=== PATIENT | male | born 1985 | race Caucasian/White ===

== ENCOUNTER 2017-09-05 11:15 | Observation (INO) | payer BC ==
[~2017-09-05] VITALS: Ht 182.9 cm; Wt 79.6 kg
[2017-09-05] VITALS (8 sets, daily range): BP systolic 106–129; BP diastolic 61–77; PULSE 61–91; TEMP 36.5–36.6; O2SAT 96–100; Ht 182.9 cm; Wt 79.6 kg
[2017-09-05] MEDS ORDERED: RIVA1TAB4 PO (11:43)
[2017-09-05] MEDS ORDERED: METO25TA56 PO (11:44)
[2017-09-05] MEDS ORDERED: DILT120C68 PO (11:45)
[2017-09-05] MEDS ORDERED: OMEG10007 PO (11:45)
[2017-09-05] MEDS ORDERED: MULT-506 PO (11:46)
--- NOTE | 2017-09-05 12:24 | NUR ---
CPL: PATIENT ARRIVED AND FOUND TO BE IN NSR/SINUS BRADYCARDIA, IV STARTED FOR EP PROCEDURE AND SPOKE WITH UNDERTAKER ASSISTANT AND ALSO DR TRIANA, WILL STILL PLAN FOR EP STUDIES AND SHE WILL NOTIFY DR IRIZARRY OF THIS
[2017-09-05] MEDS ORDERED: FENTANYL CITRATE INJ 50 MCG/1 ML 2 ML VIAL ONE ×4 (14:00→15:27)
[2017-09-05] MEDS ORDERED: MIDAZOLAM HCL 5 MG/ML 1 ML VIAL ONE ×3 (14:00→15:26)
[2017-09-05] MEDS ORDERED: HEPARIN SOD (PORCINE) 1000 UNIT/ML 10 ML VIAL ONE (14:36)
[2017-09-05] MEDS ORDERED: MIDAZOLAM HCL 1 MG/ML 2ML VIAL ONE (15:26)
--- NOTE | 2017-09-05 16:11 | History & Physical Bridge Note ---
H&P Re-Evaluation Bridge Note: I have examined the patient, reviewed the History & Physical and in the interval since the performance of the History & Physical I have noted the following changes of clinical significance: pt with p-atrial flutter for flutter ablation
--- NOTE | 2017-09-05 16:11 | Pre Sedation Assessment ---
Pre Sedation Assessment General Date of Sedation: Sep 05, 2017. Vital Signs Past 12 Hours Date Time Temp Pulse Resp B/P (MAP) Pulse Ox O2 Delivery O2 Flow Rate FiO2 09/05/17 11:46 36.6 61 12 129/77 (94) 100 Room Air Review Cardiovascular: regular rate, rhythm Lungs: lungs clear Pre-Sedation Airway Assessment Smoking Status: Former Smoker Hx of Sleep Apnea: No Short Thick Neck: No Oral Cavity: WNL Mallampati Classification: Class I ASA Classification: Class I Procedure Planning Contraindications for Sedation: None Current Medications Reviewed: Yes Notes The planned sedation has been discussed with the patient. Informed Consent was obtained. I have identified the patient, determined the appropriateness of sedation and have assessed the patient immediately prior to the procedure. All medicine(s) and interventions are by my order.
--- NOTE | 2017-09-05 16:13 | [facility] Post Operative Brief Note ---
Immediate Operative Summary Operative Date Sep 05, 2017. Pre-Operative Diagnosis p. atrial flutter Post-Operative Diagnosis same with bidirectional block along the cavo-tricuspid isthmus Procedure(s) Performed EPS, 3d mapping of cavo-tricuspid isthmus; radiofrequency ablation of CTI Surgeon flores barkley Contract Recruiter Surgeon(s) none Estimated Blood Loss <5cc Findings see official report Fluids (cc crystalloids) 600cc Specimens none Drains none Anesthesia 12mg versed and 300mcg fentatnyl Complication(s) None Disposition PCU
--- NOTE | 2017-09-05 16:14 | Post Sedation Assessment ---
Post Sedation Assessment General Date of Sedation Sep 05, 2017. Vital Signs: Vital Signs Past 12 Hours Date Time Temp Pulse Resp B/P (MAP) Pulse Ox O2 Delivery O2 Flow Rate FiO2 09/05/17 11:46 36.6 61 12 129/77 (94) 100 Room Air Post Procedure Recovery Score Activity: (2) Moves 4 extremities * Respiration: (2) Deep breath/cough Circulation: (2) +/-20% PreAnes Value Consciousness: (2) Fully Awake Oxygen Saturation: (2) > 92% On Room Air Post Anesthesia Score: 10 Discharge Sedation Level of Care: Fast Track Phase II Post Sedation Plan On clinical assessment, the patient appears to have tolerated the sedation without complications. Patient is recovering as anticipated. Patient will continue to be monitored by nursing and may be discharged when sedation discharge criteria are met per below protocol. Upon Completions of procedure and additional 15 minutes continue every 5 minute vital signs and the P.A.R. score; then discharge to a Phase I or Fast Track to Phase II per the following guidelines: * Discharge Patient to appropriate Phase II area if PAR is 8 or greater or return to pre- procedure baseline. The post - procedure orders will be as directed. * If PAR score is less than 8 or not return to pre-procedure baseline then patient will follow Phase I monitoring till PAR is reached for Phase II. The Phase I may be done in procedure room or may call to secure a Phase I area. * If naloxone or flumazenil are used for reversal, hold in Phase I for an additional 60 -120 minutes before discharge to Phase II. Please call the Sedation Physician to re-evaluate and complete post-note for discharge to Phase II area. Do NOT discharge from procedure sedation or Phase 1 until post- sedation evaluation note is complete by procedure /sedation MD Sedation Discharge Instructions to be given to the patient at discharge to home.
[2017-09-05] MEDS ORDERED: ACETAMINOPHEN 325 MG TAB PO PRN (16:15)
--- NOTE | 2017-09-05 16:17 | Discharge Instructions ---
Discharge Instructions Date of Service Sep 05, 2017. Admission Reason for Admission: Atrial Flutter Abhinav Ep/Sharla Rashad Discharge Discharge Diagnosis / Problem: paroxysmal atrial flutter Discharge Goals Goal(s): Improve function Activity Recommendations Activity Limitations: as noted below Lifting Limitations: no more than 10 pounds (do not do any heavy lifting or squatting for 1 week) Shower/Bathe: tomorrow Driving or Machine Use: resume 1 day after discharge . Instructions / Follow-Up Instructions / Follow-Up ACTIVITY RECOMMENDATIONS: It is common to feel weak and fatigue for a few days. * Do not drive or operate any motorized equipment for the next 1 day. * Limit stair usage (2 or 3 trips a day only) for the next three days. * Do not lift anything heavier than 10 pounds for the next seven days. * Do not engage in vigorous exercise or any sports for the next five days. * You may shower the day after your procedure, but do not immerse the area for three days. Cleanse the site gently with soap and water. SPECIAL CARE INSTRUCTIONS: * You may replace the pressure dressing or band-aid the morning after the procedure. * After your procedure, it is normal to have a small bruise or small lump at the site. Examine your site daily for any change in the bruise or lump, redness, swelling, drainage or numbness. Notify your doctor if any change. BLEEDING: * If there is a small amount of bleeding at the site, lie down and apply firm pressure with a clean cloth for ten minutes. When the bleeding stops, lie quietly keeping the procedure limb straight for six hours. Notify your doctor as soon as possible. * If the bleeding does not stop after ten minutes or if there is a large amount of bleeding or spurting, call 911 immediately. Continue to lie down and hold firm pressure until help arrives. SKIN IRRITATION: * You may experience some redness and/or swelling in the area where radiation was administered. If any skin irritation occurs, please contact your family physician. FOLLOW UP VISIT: Keep any scheduled doctor appointments. Current Hospital Diet Patient's current hospital diet: Regular Diet Discharge Diet Recommended Diet: Regular Diet Procedures Procedures Performed: EPS, 3d mapping of cavo-tricuspid isthmus; radiofrequency ablation of CTI Pending Studies Studies pending at discharge: no Medical Emergencies . Who to Call and When: Medical Emergencies: If at any time you feel your situation is an emergency, please call 911 immediately. . Non-Emergent Contact Non-Emergency issues call your: [employer] . . "Provider Documentation" section prepared by Joellen La. . VTE Core Measure Inpt VTE Proph given/why not?: Treatment not indicated
--- NOTE | 2017-09-05 16:20 | Discharge Summary ---
Discharge Summary Date of Service Sep 05, 2017. Discharge Summary Admission Date: 09/05/2017 Discharge Date: Sep 06, 2017 Discharge Disposition: Home Principal Diagnosis: paroxysmal atrial flutter Procedures: eps, 3d mapping of cavo-tricuspid isthmus; radiofrequency ablation of cavo- tricuspid isthmus Medication Reconciliation Continued Medications: Fish Oil (Rowlett-3) 1 Ea Cap 1 CAP PO DAILY, CAP Multivitamin (Multivitamin) Tab 1 TAB PO DAILY, TAB Discontinued Medications: Diltiazem Hcl Ext Rel (Tiazac) 120 Mg Capcr 120 MG PO DAILY, CAP Metoprolol Tartrate (Lopressor) (Lopressor) 25 Mg Tab 25 MG PO BID, TAB Rivaroxaban (Xarelto) 20 Mg Tab 20 MG PO DAILY, TAB Admission Information Physical Exam (per Admitting): aaox3, NAD NC/AT, EOMI Supple, No JVD Nrl S1, S2 no murmur CTA b/l No w/r/r Soft NT/ND No edema b/l No focal deficits Skin intact Hospital Course Pt admitted for elective atrial flutter ablation. He presented in Sinus rhythm so no SWAPNA was necessary. He underwent EPS with atrial flutter ablation without any complications. Monitored overnight and discharged home. Total time spent on discharge = 30 minutes This includes examination of the patient, discharge planning, medication reconciliation, and communication with other providers. Discharge Instructions ACTIVITY RECOMMENDATIONS: It is common to feel weak and fatigue for a few days. * Do not drive or operate any motorized equipment for the next 1 day. * Limit stair usage (2 or 3 trips a day only) for the next three days. * Do not lift anything heavier than 10 pounds for the next 7 days. * Do not engage in vigorous exercise or any sports for the next five days. * You may shower the day after your procedure, but do not immerse the area for three days. Cleanse the site gently with soap and water. SPECIAL CARE INSTRUCTIONS: * You may replace the pressure dressing or band-aid the morning after the procedure. * After your procedure, it is normal to have a small bruise or small lump at the site. Examine your site daily for any change in the bruise or lump, redness, swelling, drainage or numbness. Notify your doctor if any change. BLEEDING: * If there is a small amount of bleeding at the site, lie down and apply firm pressure with a clean cloth for ten minutes. When the bleeding stops, lie quietly keeping the procedure limb straight for six hours. Notify your doctor as soon as possible. * If the bleeding does not stop after ten minutes or if there is a large amount of bleeding or spurting, call 911 immediately. Continue to lie down and hold firm pressure until help arrives. SKIN IRRITATION: * You may experience some redness and/or swelling in the area where radiation was administered. If any skin irritation occurs, please contact your family physician. FOLLOW UP VISIT: Keep any scheduled doctor appointments.
--- NOTE | 2017-09-05 16:35 | NUR ---
arrived from EP lab via bed for telemetry observation in room 206, awake and alert, denies discomfort, left groin dressing dry and intact, no bleeding or hematoma noted, engraver applied,parents at bedside, admission nursing assessment complete, code word declined, fall safety paper complete
[2017-09-05] MEDS ORDERED: IV FLUIDS COMPLETED PRN (16:45)
--- NOTE | 2017-09-05 18:30 | NUR ---
awake and alert, denies discomfort, left groin site without bleeding or hematoma, OOB to toilet to void tolerated well
--- NOTE | 2017-09-05 20:00 | NUR ---
awake resting in bed, no change in assessment, will continue to monitor
[2017-09-06] VITALS: O2SAT 99
[2017-09-06 00:25] VITALS: BP 110/60; PULSE 74; TEMP 36.4; O2SAT 95
--- NOTE | 2017-09-06 00:51 | NUR ---
Pt Alert and oriented in bed at this time. On room air with an oxygen saturation of 97%. Heart Monitor in place with a NSR present. Pt denies any pain at this time. L Groin Surgical Site has been observed and is intact and dry. Pt Vital signs are stable at this time. Call bustos is within reach. Will continue to monitor patient.
[2017-09-06 04:00] VITALS: O2SAT 99
--- NOTE | 2017-09-06 04:00 | NUR ---
Pt Alert and oriented in bed at this time. On room air with an oxygen saturation of 96%. Heart Monitor in place with a NSR present. Pt denies any pain at this time. L Groin Surgical Site has been observed and is intact and dry. Pt Vital signs are stable at this time. Call bustos is within reach. Will continue to monitor patient.
[2017-09-06 04:39] VITALS: BP 111/73; PULSE 71; TEMP 37.1; O2SAT 93
[2017-09-06 07:47] VITALS: BP 111/79; PULSE 75; TEMP 36.4; O2SAT 96
--- NOTE | 2017-09-06 08:00 | NUR ---
A: Resting quietly in bed in no acute distress. Awakens easily for routine nursing care. Initial assessment completed, refer to EMR for details. NSR on diagnostic cardiac sonographer. Left groin site intact, no edema,erythema present. Tender to touch. Call bustos within easy reach. Discharge anticipated pending MD visit. Will continue to monitor.
[2017-09-06] MEDS ORDERED: MULTIVITAMIN TAB PO SCH (09:00)
[2017-09-06 11:03] VITALS: BP 111/79; PULSE 75; TEMP 36.4; O2SAT 96
--- NOTE | 2017-09-06 11:15 | NUR ---
A: Discharge instructions reviewed with pt. Opportunity given to ask/answer questions. nurse monitoring removed, heplock removed, dressing applied. Personal belongings gathered by pt, escorted off unit via wheelchair/volunteer in no acute distress.
--- NOTE | 2017-09-12 14:02 | OPERATIVE REPORT ---
DATE OF OPERATION: 09/05/2017 PREOPERATIVE DIAGNOSIS: Paroxysmal atrial flutter. POSTOPERATIVE DIAGNOSIS: Same. PROCEDURE: Empiric cavotricuspid isthmus radiofrequency ablation, 3D mapping of the coronary sinus os and His bundle and electrophysiology study. SURGEON: Dr. Joellen La. FREIGHT TRAFFIC CONSULTANT: None. ANESTHESIA: Monitored conscious sedation administered under my supervision by Anmol Delacruz, a total of 12 mg of Versed, 300 mcg of fentanyl, start time 1413, end time 1605. IV FLUIDS: 300 mL. BLOOD LOSS: Less than 10 mL. COMPLICATIONS: None. CONDITION: Stable. URINE OUTPUT: Not applicable. SPECIMENS: None. FINDINGS: See below. DRAINS: None. INDICATIONS: This 31-year-old gentleman who has a past medical history of recently found atrial flutter. He was started on beta blockers, calcium channel blockers, and Xarelto. An echocardiogram when he was in atrial flutter showed cardiomyopathy with ejection fraction in the 40s and he has chronic tobacco use. Due to the atrial flutter he was recommended a flutter ablation. CONSENT: Consent was obtained prior to the patient going into the electrophysiology lab. The patient was informed of risks, benefits and alternatives to the procedure. Risks include but not limited to sudden cardiac , cardiac arrhythmias, cerebrovascular accident, myocardial infarction, injury to the blood vessels, chamber of the heart or the [place] electrical system where he would need a permanent pacemaker, bleeding and infection. The patient understood these risks and agreed to the procedure as planned. Informed consent was obtained. DESCRIPTION OF THE PROCEDURE: The patient was brought into the electrophysiology lab in a fasting state. He was connected to continuous surveillance monitor. A timeout was performed to ensure patient's identity and procedure correctly. The patient was prepped and draped over the bilateral groins in normal surgical standard fashion. Moderate conscious sedation was given throughout the procedure for patient's comfort level. [place] precautions were maintained throughout the procedure. Since the patient was in sinus rhythm he did not need a SWAPNA, so the SWAPNA was canceled. Lidocaine 1% 10 mL, bupivacaine mixture were given in the bilateral groins. Using the modified Seldinger technique, venous access was obtained in the following manner. In the left femoral vein had a 7-Ukrainian sheath followed by a 20 pole Halo catheter positioned around the right atrium. In the left femoral vein there was a 7-Ukrainian sheath that had a coronary sinus Decapolar Biosense DF curve catheter that was positioned into the coronary sinus; however, would never stay so ultimately I ended up having to take it out. The right femoral vein initially had a 6-Ukrainian sheath that was swapped out for an SR0 and the 4 mm Biosense DF curve SmartTouch ThermoCool ablation catheter. We measured the distance across the cavotricuspid isthmus with pacing of the CS proximal measuring to the distal halo on the lateral right atrial wall was 67 milliseconds with pacing the distal halo on the lateral right atrial wall and measuring to the coronary sinus with 72 milliseconds. With the ablation catheter we did margaret 3D mapping of our His bundle and the coronary sinus os. Like I said, since the coronary sinus catheter was not staying in place we ended up ultimately taking it out. I then positioned the ablation catheter on the tricuspid valve along the cavotricuspid isthmus and gave a series of radiofrequency martínez at 40 ji for about 1 minute in duration all the way down to the RA SVC junction. We then when we thought we maybe had adequate block I placed the ablation catheter on the medial side of my line and we paced from the ablation catheter and measured to the right atrial lateral wall Halo distal pole and it was 140 milliseconds. We then paced from the distal Halo catheter on the right atrial lateral wall and measured to where my ablation catheter was immediately to my line and it was 134 milliseconds. During our waiting period I did an electrophysiology study with the following findings: ND interval 148 milliseconds, QRS 100 milliseconds, QT 376 milliseconds. AH interval 86 milliseconds, HV 52 milliseconds, AV Wenckebach was found to be 440 milliseconds. The AV node ERP was 600/330 and 500/360. With the ablation catheter then placed in the right ventricle, RV ERP was 600/250 and 500/220. After an appropriate adequate waiting period placed in the ablation catheter again on the medial side of the line and measuring the distance from pacing medially to lateral was 140 milliseconds and from lateral to medial 134 milliseconds confirming that we still had bidirectional block along our cavotricuspid isthmus. IMPRESSION: 1. Successful bidirectional block of the cavotricuspid isthmus for atrial flutter radiofrequency ablation. 2. Normal arteriovenous mary anne function. PLAN: Monitor patient overnight, 12-lead ECG. He can stop his beta kassidy, calcium channel kassidy and Xarelto. He should follow up in my office in 1 month and he should not do any heavy lifting or squatting for 1 week. I attest to the content of the Intraoperative Record and any orders documented therein. Any exception s are noted below.
== END 2017-09-06 11:17 | disposition home or self-care (01) ==
LOC: C.CPL 11:15 → ENRESERV 15:08 → C.2E 16:15
PROVIDERS: ADMIT Internal Medicine; ATTEND Internal Medicine
DX: I48.92 Unspecified atrial flutter (principal); F17.220 Nicotine dependence, chewing tobacco, uncomplicated; Z98.41 Cataract extraction status, right eye; Z98.42 Cataract extraction status, left eye; Z82.49 Family history of ischemic heart disease and other diseases of the circulatory system

== ENCOUNTER 2023-11-28 23:23 | Inpatient (IN) ==
--- NOTE | 2023-11-28 23:50 | Emergency Department Note ---
History of Present Illness General Chief complaint: Arrhythmia/Palpitations Stated complaint: HEART PALPITATIONS Time Seen by Provider: 11/28/23 23:33 History of Present Illness This 38-year-old male with muscular dystrophy presents ER for racing heart since 10 PM. Patient had ablation in 2018 for a flutter. No history of atrial fibrillation. Patient denies chest pain, dyspnea, fever, chills, caffeine alcohol or tobacco use. No other concerns per patient. Home Medications Medication Instructions Recorded Confirmed Type coenzyme Q10 100 mg capsule 100 mg PO DAILY 11/29/23 11/29/23 History (CoQ-10) mexiletine 150 mg capsule 150 mg PO TID 11/29/23 11/29/23 History multivitamin 1 tab PO DAILY 11/29/23 11/29/23 History omega 9-nxh-ntd-fish oil 1,000 mg 1 cap PO DAILY 11/29/23 11/29/23 History (120 mg-180 mg) capsule (Fish Oil) simvastatin 20 mg tablet 20 mg PO HS 11/29/23 11/29/23 History Allergies Allergy/AdvReac Type Severity Reaction Status Date / Time No Known Allergies Allergy Verified 11/29/23 01:02 Past Med/Surg History Social History Smoking Status: Never smoker Preferred Language: Turkish Feels Safe at Home: Yes Review of Systems A total of 10 systems reviewed and were otherwise negative Physical Exam Vital Signs Vital Signs - 24 hr 11/28/23 23:28 11/28/23 23:36 11/28/23 23:45 Temperature 36.8 C Temperature Source Temporal Artery Scan Pulse Rate 150 H 170 H Pulse Rate [Apical] 133 H Pulse Rhythm Regular Pulse Strength Normal Respiratory Rate 18 16 Blood Pressure 161/111 H Blood Pressure [Left Arm] 124/85 Blood Pressure Mean 127 Blood Pressure Mean [Left Arm] 98 Pulse Oximetry 98 97 Oxygen Delivery Method Room Air Room Air Sepsis Recent Fever Within 48 Hours No Sepsis New/Unexplained Change in Mental Status No Sepsis Action Taken by Nursing No Action Required 11/28/23 23:49 11/29/23 00:14 11/29/23 00:53 Temperature Temperature Source Pulse Rate Pulse Rate [Apical] 118 H 148 H Pulse Rhythm Pulse Strength Respiratory Rate 20 17 Blood Pressure Blood Pressure [Left Arm] 109/78 106/84 Blood Pressure Mean Blood Pressure Mean [Left Arm] 88 91 Pulse Oximetry 95 91 95 Oxygen Delivery Method Room Air Room Air Room Air Sepsis Recent Fever Within 48 Hours Sepsis New/Unexplained Change in Mental Status Sepsis Action Taken by Nursing VITALS: Vitals are noted on the nurse's note and reviewed by myself. Vital signs tachycardia GENERAL: Pleasant gentleman, in no acute distress, nondiaphoretic, well- developed well-nourished. SKIN: Capillary reflex less than 2 seconds. HEENT: Normocephalic. PERRLA. EOMI. Nares patent. Mucous membranes moist. Neck is supple without nuchal rigidity. HEART: Tachycardic irregular irregular LUNGS: Clear to auscultation bilaterally without wheezes, rales or rhonchi. No retractions or accessory muscle use. ABDOMEN: Positive bowel sounds x 4. Normal tympanic percussion. Soft, nontender, without masses or organomegaly. Guthrie sign negative. No guarding or rebound tenderness. no CVA tenderness MUSCULOSKELETAL: No gross musculoskeletal defects. NEURO: Patient was alert and oriented to person place and time. No focal neurological deficits. Course Administered Medications Diltiazem HCl 125 mg/ Dextrose 125 mls @ 5 mls/hr IV .Q24H [facility]; Protocol Stop: 12/28/23 23:44 Last Admin: 11/29/23 00:13 Dose: 5 mg/hr, 5 mls/hr Documented By: BHAVYA Co-signed By: SK Discontinued Medications Diltiazem HCl (Diltiazem Hcl 5 Mg/Ml 5 Ml Vial) Confirm Administered Dose 25 mg IV .ST-MED ONE Stop: 11/28/23 23:36 Last Admin: 11/28/23 23:51 Dose: Not Given Documented By: BHAVYA Diltiazem HCl (Diltiazem Hcl 5 Mg/Ml 5 Ml Vial) 20 mg IV NOW STA Stop: 11/28/23 23:48 Last Admin: 11/28/23 23:51 Dose: 20 mg Documented By: BHAVYA Co-signed By: ÁNGEL Sodium Chloride (Nss) 1,000 mls @ 999 mls/hr IV .Q1H1M STA Stop: 11/29/23 00:47 Last Infusion: 11/29/23 00:52 Dose: Infused Documented By: Admin: 11/28/23 23:51 Dose: 999 mls/hr Documented By: BHAVYA Miscellaneous (Stat Iv Infusion Titration Per Protocol) 1 each N/A NOW STA Stop: 11/28/23 23:48 Last Admin: 11/28/23 23:51 Dose: Not Given Documented By: BHAVYA Potassium Chloride (Potassium Chloride Crtab 20 Meq Tabcr) 40 meq PO NOW STA Stop: 11/29/23 00:42 Last Admin: 11/29/23 00:53 Dose: 40 meq Documented By: BHAVYA Critical Care Time Critical Care Time: Yes Total Critical Care Time: 35 I have personally spent 35 minutes of critical care time in the direct management of this patient. This includes bedside care, interpretation of diagnostic studies, and testing, discussion with consultants, patient, and family members, and other required patient management activities. This 35 minutes is in excess of all separately billable procedures. Medical Decision Making Medical Records Attestation: I reviewed the patient's medical records. Home Medications Current Medication List: was personally reviewed by me Laboratory Data Attestation: I reviewed the patient's lab results. 11/28/23 23:40 11/28/23 23:40 Lab Results 11/28/23 Range/Units 23:40 WBC 6.42 (4.8-10.8) K/ul RBC 5.50 (4.70-6.10) M/uL Hgb 17.5 (14.0-18.0) g/dl Hct 50.3 (42.0-52.0) % MCV 91.5 (80.0-100.0) fL MCH 31.8 (25.0-34.0) pg MCHC 34.8 (32.0-36.0) g/dL RDW Std Deviation 39.5 (36.4-46.3) fL RDW Coeff of Tacho 11.9 (11.5-14.5) % Plt Count 226 (130-400) K/uL MPV 9.1 L (9.4-12.4) fL Neutrophils % (Manual) 34 % Lymphocytes % (Manual) 22 % Monocytes % (Manual) 7 % Eosinophils % (Manual) 2 % Neutrophils # (Manual) 2.18 (1.40-6.50) K/uL Total Absolute Neuts 2.18 (1.4-6.5) K/uL Lymphocytes # (Manual) 1.41 (1.2-3.4) K/uL Total Abs Lymphocytes 3.66 H (1.2-3.4) K/uL Monocytes # (Manual) 0.45 (0.11-0.59) K/uL Eosinophils # (Manual) 0.13 (0-0.50) K/uL Large Granular Lymphs 35 % # Lrg Granular Lymphs 2.25 K/uL RBC Morphology Unremarkable PT 10.9 (9.0-12.0) Seconds INR 1.0 (0.9-1.1) APTT 30 (21-31) Seconds PTT Ratio 1.1 Sodium 145 (136-145) mmol/L Potassium 3.2 L (3.5-5.1) mmol/L Chloride 107 (98-107) mmol/L Carbon Dioxide 25 (21-32) mmol/L Anion Gap 13 H (3-11) BUN 15 (6-23) mg/dl Creatinine 1.03 (0.6-1.4) mg/dl Est Cr Clr Drug Dosing 105.0 ml/min Est GFR ( Amer) 105.6 ml/min Est GFR (Non-Af Amer) 91.1 ml/min BUN/Creatinine Ratio 14.6 (10-20) Glucose 114 H (70-99(Fasting)) mg/dl Calcium 9.8 (8.6-10.3) mg/dl Magnesium 2.4 (1.7-2.4) mg/dl Total Bilirubin 0.5 (0.2-1.0) mg/dl AST 31 (13-39) U/L ALT 46 (7-52) U/L Alkaline Phosphatase 73 (34-104) U/L Troponin I High Sens 17.9 (0-20) pg/ml Total Protein 8.4 H (6.0-8.3) gm/dl Albumin 5.2 H (3.4-5.0) gm/dl Globulin 3.2 (2.5-4.0) gm/dl Albumin/Globulin Ratio 1.6 (0.9-2) TSH 1.619 (0.300-4.500) uIu/ml Imaging Data Attestation: I personally reviewed and interpreted this imaging study as follows: MDM Narrative Prior records/ancillary studies reviewed. Triage Nursing notes reviewed. Additional history obtained from family. The patient's history was concerning for palpitations. Differential diagnosis: Etiologies such as premature contractions, electrolyte abnormality, cardiac dysrhythmia, thyroid dysfunction, pulmonary embolism, infection, gastrointestinal, as well as others were entertained. Physical examination: Benign as above. ER treatment provided: Cardizem with drip On reassessment the patient felt better. Diagnostic interpretation by me: An order was placed for continuous cardiac monitoring. The monitor shows a rate of 60-1 80 with a A-fib rhythm per my interpretation. The electrocardiogram was ordered for palpitaions ECG: Ordered for palpitations EKG: Irregularly irregular ventricular rate of 134. Impression A-fib RVR independently interpreted by myself The labs Independently Interpreted by myself revealed euthyroid no worrisome leukocytosis, negative troponin Imaging studies: Chest x-ray with no acute consolidation, pneumothorax or free air per my independent interpretation Consultation: A consultation was placed with the hospitalist. The case was discussed and diagnostics were reviewed. The patient was evaluated in the ER for further treatment. This appears to be consistent with A-fib with RVR. Patient was started on a Cardizem drip. Medicine was consulted and case was discussed. Patient will be admitted to the medical service for further evaluation and treatment. By the evaluation outlined above emergent etiologies such as electrolyte abnormality, thyroid dysfunction, pulmonary embolism, infection, as well as others were deemed relatively unlikely. The pt informed about the findings as listed above. All questions were answered and pleased with the treatment. The chart was completed utilizing [employer] Speech voice recognition software. Grammatical errors, random word insertions, pronoun errors, and incomplete sentences are an occassional consequence of this system due to software limitations, ambient noise, and hardware issues. Any formal questions or concerns about the content, text, or information contained within the body of this dictation should be directly addressed to the physician criminal legal assistant for clarification. Impression & Plan Atrial fibrillation with rapid ventricular response Discharge Plan Visit Data Chief Complaint: Arrhythmia/Palpitations Stated Complaint: HEART PALPITATIONS ED Provider: Chantel Langford ED Midlevel Provider: Bonnie Kelly Discharge Problem: Atrial fibrillation with rapid ventricular response Patient Disposition: Admitted As Inpatient Condition: Good Forms Stand Alone Forms: My [facility] Prescriptions Prescriptions: No Action multivitamin Tablet 1 tab PO DAILY mexiletine 150 mg capsule 150 mg PO TID simvastatin 20 mg tablet 20 mg PO HS coenzyme Q10 [CoQ-10] 100 mg Capsule 100 mg PO DAILY omega 4-bua-gim-fish oil [Fish Oil] 1,000 mg (120 mg-180 mg) Capsule 1 cap PO DAILY Referrals Referrals: Lexus Muñiz DO [Primary Care Provider] -
[2023-11-28] MEDS: SODIUM CHLORIDE 0.9% 1,000 ML IV STA (23:51)
[2023-11-28] MEDS: dilTIAZem HCl 5 MG/ML 5 ML VIAL IV ONE (23:51)
[2023-11-28] MEDS: dilTIAZem HCl 5 MG/ML 5 ML VIAL IV STA (23:51)
[2023-11-28] MEDS: STAT IV Infusion **Titration per Protocol STA (23:51)
[2023-11-29 00:11] LABS: Hematocrit (blood only) 50.3 % (42.0-52.0); Hemoglobin 17.5 g/dl (14.0-18.0); Mean Corpuscular Hemoglobin 31.8 pg (25.0-34.0); Mean Corpuscular Hgb Conc 34.8 g/dL (32.0-36.0); Mean Corpuscular Volume 91.5 fL (80.0-100.0); Mean Platelet Volume 9.1 fL (9.4-12.4); Platelet Count 226 K/uL (130-400); RDW Coefficient of Variation 11.9 % (11.5-14.5); RDW Standard Deviation 39.5 fL (36.4-46.3); White Blood Count 6.42 K/ul (4.8-10.8)
[2023-11-29] MEDS: dilTIAZem HCL 125 MG in DEXTROSE 5% 100 ML IV SCH (00:13)
[2023-11-29 00:28] LABS: Albumin Globulin Ratio 1.6 (0.9-2); Albumin Level 5.2 gm/dl (3.4-5.0); BUN Creatinine Ratio 14.6 (10-20); Bilirubin,Total 0.5 mg/dl (0.2-1.0); Calcium 9.8 mg/dl (8.6-10.3); Est GFR (African American) 105.6 ml/min; Est GFR (Non-African American) 91.1 ml/min; Globulin 3.2 gm/dl (2.5-4.0); Magnesium 2.4 mg/dl (1.7-2.4); Potassium 3.2 mmol/L (3.5-5.1); Total Protein 8.4 gm/dl (6.0-8.3)
[2023-11-29 00:37] LABS: Troponin I High Sensitivity 17.9 pg/ml (0-20)
[2023-11-29 00:40] LABS: Partial Thromboplastin Ratio 1.1; Partial Thromboplastin Time 30 Seconds (21-31); Prothrombin Time 10.9 Seconds (9.0-12.0)
[2023-11-29 00:46] LABS: Thyroid Stimulating Hormone 1.619 uIu/ml (0.300-4.500)
[2023-11-29 00:48] LABS: ALC (manual) 3.66 K/uL (1.2-3.4); ANC (manual) 2.18 K/uL (1.4-6.5); Eosinophils # (manual) 0.13 K/uL (0-0.50); Eosinophils % (manual) 2 %; Large Granular Lymph # (manua 2.25 K/uL; Large Granular Lymph % (manual) 35 %; Lymphocytes # (manual) 1.41 K/uL (1.2-3.4); Lymphocytes % (manual) 22 %; Monocytes # (manual) 0.45 K/uL (0.11-0.59); Monocytes % (manual) 7 %; Neutrophils # (manual) 2.18 K/uL (1.40-6.50); Neutrophils % (manual) 34 %; RBC Morphology Unremarkable
[2023-11-29] MEDS: POTASSIUM CHLORIDE CRTAB 20 MEQ TABCR PO STA ×2 (00:53→02:50)
[2023-11-29] MEDS ORDERED: Heparin IV Adult Wt-Based Standard *NO* INITIAL Bolus Protocol IV STA (01:07)
[2023-11-29] MEDS: HEPARIN SODIUM/DEXTROSE 25,000 UNITS/500 ML BAG IV SCH (02:01)
[2023-11-29] MEDS: METOPROLOL TARTRATE 25 MG TAB PO STA (02:04)
[2023-11-29] MEDS: SODIUM CHLOR 0.45% + 20MEQ KCL 20 MEQ/1,000 ML BAG IV ONE (02:06)
--- NOTE | 2023-11-29 03:05 | History & Physical Report ---
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 It may contain grammatical or spelling errors. Kindly contact undersigned for clarification of any documentation item in question. History of Present Illness Chief Complaint: Palpitations Primary Care Provider: Lexus Muñiz DO History obtained from patient, family, and records. Medical history significant for atrial flutter status post ablation, hyperlipidemia, myotonic muscular dystrophy, past tobacco abuse. Last confinement August 2017 for paroxysmal atrial flutter status post ablation. Patient metoprolol and Xarelto discontinued on discharge. Last night, patient experienced palpitations without chest pain or SOB. No unusual stress at home or at work. Denies inordinate caffeine intake. Patient noted to be in rapid A-fib upon arrival at the ER. IV Cardizem infusion initiated at the ER. 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 Allergies Allergy/AdvReac Type Severity Reaction Status Date / Time No Known Allergies Allergy Verified 11/29/23 01:02 Home Medications Medication Instructions Recorded Confirmed Type coenzyme Q10 100 mg capsule 100 mg PO DAILY 11/29/23 11/29/23 History (CoQ-10) mexiletine 150 mg capsule 150 mg PO TID 11/29/23 11/29/23 History multivitamin 1 tab PO DAILY 11/29/23 11/29/23 History omega 7-kys-qzi-fish oil 1,000 mg 1 cap PO DAILY 11/29/23 11/29/23 History (120 mg-180 mg) capsule (Fish Oil) simvastatin 20 mg tablet 20 mg PO HS 11/29/23 11/29/23 History Past Med/Surg History Social History Smoking Status: Former smoker Do You Dip or Chew Tobacco: No; Hx Alcohol Use: Yes Alcohol type: beer, wine and hard liquor Hx Substance Use: No Preferred Language: Serbian Communication Ability: Effective 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 Beliefs That Will Affect Care: None Current Living Situation: Spouse Other Information That Helps Us Care for You: No Feels Safe at Home: Yes Safety Concerns: Feels Safe At This Time Review of Systems Review of Systems: As per HPI, all other systems reviewed and negative Physical Exam Physical Exam: GENERAL: Comfortable, pleasant, myoclonic facies, no respiratory distress, looks older than stated age SKIN: Normal color, warm HEENT: Virgin palpebral conjunctivae, no ptosis, dry buccal mucosa NECK : Supple, no tenderness CHEST : CTA, no tenderness HEART : Irregular, no obvious murmurs ABDOMEN: no distention, nontender EXTREMITIES : No LE swelling/tenderness, no other conspicuous deformities noted NEUROLOGIC : Coherent, no facial asymmetry, no other gross focality Results & Data Results & Data Vital Signs (Past 12 Hours) Vital Signs Temp Pulse Pulse Resp BP BP Pulse Ox 11/29/23 02:00 81 20 115/76 95 11/29/23 01:49 81 14 107/70 95 11/29/23 00:53 148 H 17 106/84 95 11/29/23 00:14 118 H 20 109/78 91 11/28/23 23:49 95 11/28/23 23:45 133 H 16 124/85 97 11/28/23 23:36 170 H 11/28/23 23:28 36.8 C 150 H 18 161/111 H 98 O2 Del Method 11/29/23 02:00 Room Air 11/29/23 01:49 Room Air 11/29/23 00:53 Room Air 11/29/23 00:14 Room Air 11/28/23 23:49 Room Air 11/28/23 23:45 Room Air 11/28/23 23:36 11/28/23 23:28 Room Air Laboratory Results Laboratory Results WBC 6.42 K/ul (4.8-10.8) 11/28/23 23:40 RBC 5.50 M/uL (4.70-6.10) 11/28/23 23:40 Hgb 17.5 g/dl (14.0-18.0) 11/28/23 23:40 Hct 50.3 % (42.0-52.0) 11/28/23 23:40 MCV 91.5 fL (80.0-100.0) 11/28/23 23:40 MCH 31.8 pg (25.0-34.0) 11/28/23 23:40 MCHC 34.8 g/dL (32.0-36.0) 11/28/23 23:40 RDW Std Deviation 39.5 fL (36.4-46.3) 11/28/23 23:40 RDW Coeff of Tacho 11.9 % (11.5-14.5) 11/28/23 23:40 Plt Count 226 K/uL (130-400) 11/28/23 23:40 MPV 9.1 fL (9.4-12.4) L 11/28/23 23:40 Neutrophils % (Manual) 34 % 11/28/23 23:40 Lymphocytes % (Manual) 22 % 11/28/23 23:40 Monocytes % (Manual) 7 % 11/28/23 23:40 Eosinophils % (Manual) 2 % 11/28/23 23:40 Neutrophils # (Manual) 2.18 K/uL (1.40-6.50) 11/28/23 23:40 Total Absolute Neuts 2.18 K/uL (1.4-6.5) 11/28/23 23:40 Lymphocytes # (Manual) 1.41 K/uL (1.2-3.4) 11/28/23 23:40 Total Abs Lymphocytes 3.66 K/uL (1.2-3.4) H 11/28/23 23:40 Monocytes # (Manual) 0.45 K/uL (0.11-0.59) 11/28/23 23:40 Eosinophils # (Manual) 0.13 K/uL (0-0.50) 11/28/23 23:40 Large Granular Lymphs 35 % 11/28/23 23:40 # Lrg Granular Lymphs 2.25 K/uL 11/28/23 23:40 RBC Morphology Unremarkable 11/28/23 23:40 PT 10.9 Seconds (9.0-12.0) 11/28/23 23:40 INR 1.0 (0.9-1.1) 11/28/23 23:40 APTT 30 Seconds (21-31) 11/28/23 23:40 PTT Ratio 1.1 11/28/23 23:40 Sodium 145 mmol/L (136-145) 11/28/23 23:40 Potassium 3.2 mmol/L (3.5-5.1) L 11/28/23 23:40 Chloride 107 mmol/L (98-107) 11/28/23 23:40 Carbon Dioxide 25 mmol/L (21-32) 11/28/23 23:40 Anion Gap 13 (3-11) H 11/28/23 23:40 BUN 15 mg/dl (6-23) 11/28/23 23:40 Creatinine 1.03 mg/dl (0.6-1.4) 11/28/23 23:40 Est Cr Clr Drug Dosing 105.0 ml/min 11/28/23 23:40 Est GFR ( Amer) 105.6 ml/min 11/28/23 23:40 Est GFR (Non-Af Amer) 91.1 ml/min 11/28/23 23:40 BUN/Creatinine Ratio 14.6 (10-20) 11/28/23 23:40 Glucose 114 mg/dl (70-99(Fasting)) H 11/28/23 23:40 Calcium 9.8 mg/dl (8.6-10.3) 11/28/23 23:40 Magnesium 2.4 mg/dl (1.7-2.4) 11/28/23 23:40 Total Bilirubin 0.5 mg/dl (0.2-1.0) 11/28/23 23:40 AST 31 U/L (13-39) 11/28/23 23:40 ALT 46 U/L (7-52) 11/28/23 23:40 Alkaline Phosphatase 73 U/L (34-104) 11/28/23 23:40 Troponin I High Sens 17.9 pg/ml (0-20) 11/28/23 23:40 Total Protein 8.4 gm/dl (6.0-8.3) H 11/28/23 23:40 Albumin 5.2 gm/dl (3.4-5.0) H 11/28/23 23:40 Globulin 3.2 gm/dl (2.5-4.0) 11/28/23 23:40 Albumin/Globulin Ratio 1.6 (0.9-2) 11/28/23 23:40 TSH 1.619 uIu/ml (0.300-4.500) 11/28/23 23:40 Diagnostic Findings EKG as per my interpretation :Rate 135, A-fib, LAD, LAFB, septal infarct, no ischemia
[2023-11-29] MEDS ORDERED: PROMETHAZINE HCL 6.25 MG in SODIUM CHLORIDE 0.9% 50 ML IV PRN (03:08)
[2023-11-29] MEDS ORDERED: traMADol HCL 50 MG TABLET PO PRN (03:08)
[2023-11-29] MEDS ORDERED: ACETAMINOPHEN 325 MG TAB PO PRN (04:22)
[2023-11-29] MEDS: SODIUM CHLORIDE 0.9% 500 ML IV ONE (04:31)
[2023-11-29] MEDS: MULTIVITAMIN TAB PO SCH (07:55)
[2023-11-29] MEDS: MEXILETINE HCL 150 MG CAPSULE PO SCH (07:55)
--- NOTE | 2023-11-29 07:57 | XRay Report ---
XR chest 1V portable CLINICAL HISTORY: Dysrhythmia. COMPARISON STUDY: No previous studies for comparison. FINDINGS: Lung volumes are mildly diminished. This likely reflects a hypoventilatory study and accoun ts for mild prominence of the vasculature. There is no pneumothorax or pleural effusion. No consolida tion. No evidence for overt pulmonary edema. IMPRESSION: Low lung volumes likely reflecting a hypoventilatory study. No definite acute cardiopulm onary findings. ACT 112: Negative or not required by law. Electronically signed by: Varun Dee M.D. 11/29/2023 7:56 AM
[2023-11-29 08:08] LABS: Basophils # (auto) 0.01 K/uL (0.00-0.20); Basophils % (auto) 0.2 %; Eosinophils # (auto) 0.04 K/uL (0.00-0.50); Eosinophils % (auto) 0.8 %; Hematocrit (blood only) 44.2 % (42.0-52.0); Hemoglobin 14.8 g/dl (14.0-18.0); Immature Granulocytes # (auto) 0.01 K/uL (0.01-0.20); Immature Granulocytes % (auto) 0.2 %; Lymphocytes # (auto) 2.25 K/uL (1.20-3.40); Lymphocytes % (auto) 42.8 %; Mean Corpuscular Hgb Conc 33.5 g/dL (32.0-36.0); Mean Corpuscular Volume 92.7 fL (80.0-100.0); Mean Platelet Volume 9.2 fL (9.4-12.4); Monocytes # (auto) 0.51 K/uL (0.11-0.59); Monocytes % (auto) 9.7 %; Neutrophils # (auto) 2.44 K/uL (1.40-6.50); Neutrophils % (auto) 46.3 %; Platelet Count 183 K/uL (130-400); RDW Standard Deviation 40.9 fL (36.4-46.3); Red Blood Count 4.77 M/uL (4.70-6.10); White Blood Count 5.26 K/ul (4.8-10.8)
--- NOTE | 2023-11-29 08:15 | Cardiology Consultation ---
Date of Consultation November 29, 2023 Assessment & Plan (1) Atrial flutter: (2) Atrial fibrillation with rapid ventricular response: (3) Myotonic dystrophy: Plan IMPRESSION: 38-year-old male with past medical history atrial flutter status post empiric flutter ablation, 09/2017. Reported to [facility] emergency department last evening due to tachy-palpitations and was found to be in rapid atrial fibrillation. Converted to sinus rhythm with the use of IV diltiazem. Also carries a history of myotonic dystrophy and is on both mexiletine and modafinil prescribed by neurology. PLAN: AFIB with RVR: Patient maintaining sinus rhythm on telemetry. -Continue metoprolol tartrate 25 mg twice daily -[id number] score of 0, discontinue IV heparin. Will place patient on aspirin 81 mg daily -Stay hydrated and avoid alcohol and caffeine. -Recommend outpatient follow-up with [facility]. Case discussed with Dr. Du. Further recommendations pending his assessment and echocardiogram results. I spent a total of 40 minutes on the date of service in preparation, delivery, and documentation of the care provided to the patient excluding any time spent in the performance of separately billed services. RANDY Lai Department of Cardiology, [facility] This chart was completed in part utilizing Speech Voice Recognition Software. Grammatical errors, random word insertions, pronoun errors, and incomplete sentences are an occasional consequence of this system due to software limitations, ambient noise, and hardware issues. Any formal questions or concerns about the content, text, or information contained within the body of this dictation should be directly addressed to the provider for clarification. Supervising Physician Co-Signing Physician Notes I have reviewed the advance practitioner's documentation, and I agree with, and take responsibility for the plan of care. 38-year-old male presented to the emergency department with palpitations. History of atrial flutter status post ablation 2017. ECG on admission demonstrating atrial fibrillation/atypical flutter with rapid ventricular response. Treated with intravenous diltiazem with spontaneous conversion to sinus rhythm overnight. Carries a history of myotonic dystrophy type I. Has not been treated with aspirin or beta-kassidy therapy since ablation. Admits to drinking two 12% beers last evening after work which is his usual routine. 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 PE: Gen: NAD, AAOx3. Heart: Regular rhythm, normal S1-S2. No murmur. Lungs: Clear bilateral, no rales, rhonchi, wheeze extremities: No edema. A/P: 38-year-old male with myotonic dystrophy type I presents with paroxysmal atrial fibrillation with rapid ventricular response. Discussed myotonic dystrophy can be associated with cardiac abnormalities including cardiomyopathy and arrhythmias. History of flutter ablation 2018. 2D transthoracic echocardiogram demonstrates preserved LV systolic function (low normal LVEF 50- 55%) with normal left atrial size. No significant valvular pathology. [id number] score is 0. Spontaneous conversion to normal sinus rhythm overnight. Suspect alcohol intake contributing to recurrent arrhythmia. Recommend addition of beta-kassidy therapy, metoprolol to tartrate 25 mg twice daily and low-dose aspirin. Instructed to reduce/eliminate alcohol intake. Outpatient follow-up with Dr. March. No further inpatient cardiac testing or intervention recommended at this time. I spent a total of 30 minutes on the date of service in preparation, delivery, and documentation of the care provided to this patient, excluding any time spent in the performance of separately billed services. History of Present Illness Reason for Consultation: Atrial fibrillation Requesting Physician: Eliud granados Attending Physician: Sanjay Stahl MD History of Present Illness This is a 38-year-old male who carries a history of paroxysmal atrial flutter status post ablation in September 2017. Presented to [facility] emergency department due to tachy-palpitations. EKG performed showing atrial fibrillation with RVR, 134 bpm. Heparin drip initiated. He is not normally on long-term anticoagulation. Started on a diltiazem drip and self converted to sinus rhythm. Started on metoprolol tartrate 25 mg twice daily. Lab work showed stable renal function. Potassium low at 3.2 (supplemented with 20 meq KCL). CBC stable. Thyroid within normal limits. Echo: Preliminary showed preserved LV systolic function. Tele: AFIB 180-120s on admission, converted to NSR 60 at 01:11am with IV diltiazem>> maintaining SR 60s Upon entrance into the room patient resting comfortably in bed. No acute concerns. No chest pain, shortness of breath, palpitations, dizziness, syncope or near syncope. No orthopnea, PND, or increased lower extremity edema. No fever, chills, cough, hematochezia, melena, or hemoptysis. Nonsmoker. Notes alcohol use a few times per week. Did drink alcohol the day of his admission. Primary outpatient boom master: Dr. La (EP) Past medical history: Paroxysmal atrial flutter status post empiric flutter ablation, 09/2017 Myotonic muscular dystrophy, on mexiletine and modafinil--follows with neurology Hypertriglyceridemia Allergies Allergy/AdvReac Type Severity Reaction Status Date / Time No Known Allergies Allergy Verified 11/29/23 01:02 Home Medications Medication Instructions Recorded Confirmed Type coenzyme Q10 100 mg capsule 100 mg PO DAILY 11/29/23 11/29/23 History (CoQ-10) mexiletine 150 mg capsule 150 mg PO TID 11/29/23 11/29/23 History multivitamin 1 tab PO DAILY 11/29/23 11/29/23 History omega 0-muc-bcz-fish oil 1,000 mg 1 cap PO DAILY 11/29/23 11/29/23 History (120 mg-180 mg) capsule (Fish Oil) simvastatin 20 mg tablet 20 mg PO HS 11/29/23 11/29/23 History Patient History Social History Smoking Status: Former smoker Do You Dip or Chew Tobacco: No; Hx Alcohol Use: Yes Alcohol type: beer, wine and hard liquor Hx Substance Use: No Preferred Language: Belarusian Communication Ability: Effective Supervisor Mill Required: No Beliefs That Will Affect Care: None Current Living Situation: Spouse Other Information That Helps Us Care for You: No Feels Safe at Home: Yes Safety Concerns: Feels Safe At This Time Review of Systems Review of Systems: All systems reviewed & are unremarkable except as noted in HPI & below Physical Exam Constitutional: WD/WN, vitals as above no acute distress Eyes: PERRL, conjunctivae normal, anicteric sclerae Neck: normal visual inspection and trachea midline Respiratory: normal respiratory effort, lungs clear to auscultation Cardiovascular: RRR, no murmur, no edema Heart Sounds: normal S1 and normal S2 Vessels: no JVD Extremities: no edema Gastrointestinal (Abdomen): normal bowel sounds, soft, nontender, no hepatosplenomegaly Skin: no rashes, warm and dry Psychiatric: A+Ox3, euthymic affect Results & Data Vital Signs (Past 12 Hours) Vital Signs Temp Pulse Pulse Resp BP BP Pulse Ox 11/29/23 07:56 36.4 C L 75 16 104/71 96 11/29/23 07:45 64 11/29/23 06:01 69 15 106/73 94 11/29/23 05:02 65 16 100/70 95 11/29/23 04:44 62 16 116/72 95 11/29/23 04:30 61 17 108/84 96 11/29/23 04:00 68 15 87/61 L 94 11/29/23 03:25 68 11/29/23 02:00 81 20 115/76 95 11/29/23 01:49 81 14 107/70 95 11/29/23 00:53 148 H 17 106/84 95 11/29/23 00:14 118 H 20 109/78 91 11/28/23 23:49 95 11/28/23 23:45 133 H 16 124/85 97 11/28/23 23:36 170 H 11/28/23 23:28 36.8 C 150 H 18 161/111 H 98 O2 Del Method 11/29/23 07:56 Room Air 11/29/23 07:45 11/29/23 06:01 Room Air 11/29/23 05:02 Room Air 11/29/23 04:44 Room Air 11/29/23 04:30 Room Air 11/29/23 04:00 Room Air 11/29/23 03:25 11/29/23 02:00 Room Air 11/29/23 01:49 Room Air 11/29/23 00:53 Room Air 11/29/23 00:14 Room Air 11/28/23 23:49 Room Air 11/28/23 23:45 Room Air 11/28/23 23:36 11/28/23 23:28 Room Air Laboratory Results Cardiac Enzymes 11/28/23 Range/Units 23:40 AST 31 (13-39) U/L Troponin I High Sens 17.9 (0-20) pg/ml Coagulation 11/28/23 Range/Units 23:40 PT 10.9 (9.0-12.0) Seconds APTT 30 (21-31) Seconds CBC 11/28/23 11/29/23 Range/Units 23:40 07:48 WBC 6.42 5.26 (4.8-10.8) K/ul RBC 5.50 4.77 (4.70-6.10) M/uL Hgb 17.5 14.8 (14.0-18.0) g/dl Hct 50.3 44.2 (42.0-52.0) % Plt Count 226 183 (130-400) K/uL Neut # (Auto) 2.44 (1.40-6.50) K/uL Lymph # (Auto) 2.25 (1.20-3.40) K/uL Mcdonough # (Auto) 0.51 (0.11-0.59) K/uL Eos # (Auto) 0.04 (0.00-0.50) K/uL Baso # (Auto) 0.01 (0.00-0.20) K/uL Comprehensive Metabolic Panel 11/28/23 11/29/23 Range/Units 23:40 07:48 Sodium 145 143 (136-145) mmol/L Potassium 3.2 L 4.8 D (3.5-5.1) mmol/L Chloride 107 112 H (98-107) mmol/L Carbon Dioxide 25 27 (21-32) mmol/L BUN 15 11 (6-23) mg/dl Creatinine 1.03 0.89 (0.6-1.4) mg/dl Glucose 114 H 110 H (70-99(Fasting)) mg/dl Calcium 9.8 8.6 (8.6-10.3) mg/dl AST 31 (13-39) U/L ALT 46 (7-52) U/L Alkaline Phosphatase 73 (34-104) U/L Total Protein 8.4 H (6.0-8.3) gm/dl Albumin 5.2 H (3.4-5.0) gm/dl Intake and Output 11/28/23 11/29/23 11/29/23 22:59 06:59 14:59 Intake Total 1846.917 / 1846.917 259.933 / 259.933 Balance 1846.917 / 1846.917 259.933 / 259.933 Intake: IV 1846.917 / 1846.917 259.933 / 259.933 Heparin Sodium/Dextrose 25,000 259.933 / 259.933 units In 500 ml @ 1,400 UNITS/ HR 28 mls/hr IV .[id number] [facility] Rx #:[id number] Sodium Chlor 0.45% + 20Meq KCl 330 / 330 20 meq In 1,000 ml @ 100 mls/hr IV .Q10H [facility] Rx#:[id number] Sodium Chloride 0.9% 1,000 ml @ 1000 / 1000 999 mls/hr IV .Q1H1M [facility] Rx#: [id number] Sodium Chloride 0.9% 500 ml @ 500 / 500 500 mls/hr IV .Q1H [facility] Rx#: [id number] dilTIAZem HCL 125 mg In 16.917 / 16.917 Dextrose 5% 100 ml @ 5 MG/HR 5 mls/hr IV .Q24H [facility] Rx#: [id number] Other: Weight 77.1 kg 77.1 kg Weight Measurement Method Built in [facility] Patient Weight 11/30/23 06:59 Weight 77.1 kg
[2023-11-29 08:30] LABS: BUN Creatinine Ratio 12.4 (10-20); Calcium 8.6 mg/dl (8.6-10.3); Creatinine Clr Calc Pharmacy 121.5 ml/min; Est GFR (African American) 124.8 ml/min; Est GFR (Non-African American) 107.7 ml/min; Potassium 4.8 mmol/L (3.5-5.1)
[2023-11-29 08:49] LABS: ANTI-Xa, UFH(UnfractionatedHep 0.42 IU/ml (0.3-0.7)
[2023-11-29] MEDS ORDERED: METOPROLOL TARTRATE 25 MG TAB PO SCH ×2 (09:00→21:00)
--- NOTE | 2023-11-29 09:40 | Electrocardiogram Report ---
Test Reason : Blood Pressure : / mmHG Vent. Rate : 134 BPM Atrial Rate : 000 BPM P-R Int : 000 ms QRS Dur : 098 ms QT Int : 312 ms P-R-T Axes : 000 -28 058 degrees QTc Int : 465 ms Poor data quality, interpretation may be adversely affected Atrial fibrillation with rapid ventricular response Abnormal ECG When compared with ECG of 05-SEP-2017 17:53, Atrial fibrillation has replaced Sinus rhythm Vent. rate has increased BY 54 BPM Confirmed by Alejandro Szymanski ([id number]) on 11/29/2023 9:39:45 AM Referred By: REFERRED SELF Confirmed By:Devan Szymanski
--- NOTE | 2023-11-29 09:41 | Electrocardiogram Report ---
Test Reason : Blood Pressure : / mmHG Vent. Rate : 069 BPM Atrial Rate : 069 BPM P-R Int : 244 ms QRS Dur : 114 ms QT Int : 394 ms P-R-T Axes : 024 -25 012 degrees QTc Int : 422 ms Sinus rhythm with 1st degree A-V block Minimal voltage criteria for LVH, may be normal variant Borderline ECG When compared with ECG of 28-NOV-2023 23:33, (unconfirmed) Sinus rhythm has replaced Atrial fibrillation Vent. rate has decreased BY [address] elevation now present in Lateral leads T wave inversion now evident in Inferior leads Confirmed by Alejandro Szymanski ([id number]) on 11/29/2023 9:41:33 AM Referred By: REFERRED SELF Confirmed By:Devan Szymanski
[2023-11-29] MEDS: ASPIRIN 81 MG ECTAB PO SCH (11:51)
--- NOTE | 2023-11-29 12:08 | Hospitalist Progress Note ---
Date of Service November 29, 2023 Assessment & Plan (1) Atrial fibrillation with rapid ventricular response: Plan: New onset A-fib H/O Atrial flutter S/P Ablation TSH normal --ECHO: Left ventricle systolic function is normal. EF 50 to 55%. Left ventricular wall motion is normal. Left atrial size is normal. Trace aortic regurgitation. Trace mitral regurgitation. --[id number] score: 0 -- IV heparin discontinued Started on metoprolol 25 mg twice a day Started on aspirin 81 mg daily per cardiology Also on Mexiletine Appreciate cardiology input Converted to sinus spontaneously Advise to avoid alcohol, caffeine use Needs follow-up with cardiology on discharge Hypokalemia Replete electrolytes as needed Hyperlipidemia Continue simvastatin Myotonic muscular dystrophy Progressive disease on Mexiletine Past Tobacco abuse per records DVT Px: IV heparin--discontinued Encourage to ambulate Code Status Full code Admission and Anticipated Discharge Date Admission Date: November 29, 2023 Subjective Patient is seen and examined at bedside Palpitations resolved Denies any chest pain, dyspnea, dizziness, nausea, vomiting, abdominal pain No other complaints Eager to get discharged Discussed with cardiology today Review of Systems Review of Systems: All systems reviewed & are unremarkable except as noted in Subjective Physical Exam Physical Exam: Physical Exam: Vitals signs as noted above General Appearance:Moderately built and nourished, no apparent distress Head: normocephalic, Atraumatic Eyes: normal inspection, EOMI Neck: supple, Trachea midline Respiratory/Chest: Normal breath sounds, CTA, No accessory muscle use Cardiovascular: S1, S2, No murmur Abdomen/GI:Soft, Non tender, Bowel sounds present Extremities/Musculoskeletal:normal inspection, no edema Neurologic/Psych:AAOX3, grossly no focal neurological deficits Skin: normal color, warm Results & Data Results & Data Vital Signs (Past 12 Hours) Vital Signs Temp Pulse Pulse Resp BP BP Pulse Ox 11/29/23 11:00 69 20 98 11/29/23 11:00 121/90 11/29/23 10:00 63 21 95 11/29/23 10:00 99/75 L 11/29/23 09:00 116/90 11/29/23 09:00 64 11 L 96 11/29/23 08:00 104/81 11/29/23 08:00 63 18 96 11/29/23 07:56 36.4 C L 75 16 104/71 96 11/29/23 07:54 62 18 96 11/29/23 07:54 104/71 11/29/23 07:45 64 11/29/23 07:00 62 17 95 11/29/23 06:01 69 15 106/73 94 11/29/23 05:02 65 16 100/70 95 11/29/23 04:44 62 16 116/72 95 11/29/23 04:30 61 17 108/84 96 11/29/23 04:00 68 15 87/61 L 94 11/29/23 03:25 68 11/29/23 02:00 81 20 115/76 95 11/29/23 01:49 81 14 107/70 95 11/29/23 00:53 148 H 17 106/84 95 11/29/23 00:14 118 H 20 109/78 91 O2 Del Method 11/29/23 11:00 11/29/23 11:00 11/29/23 10:00 11/29/23 10:00 11/29/23 09:00 11/29/23 09:00 11/29/23 08:00 11/29/23 08:00 11/29/23 07:56 Room Air 11/29/23 07:54 11/29/23 07:54 11/29/23 07:45 11/29/23 07:00 11/29/23 06:01 Room Air 11/29/23 05:02 Room Air 11/29/23 04:44 Room Air 11/29/23 04:30 Room Air 11/29/23 04:00 Room Air 11/29/23 03:25 11/29/23 02:00 Room Air 11/29/23 01:49 Room Air 11/29/23 00:53 Room Air 11/29/23 00:14 Room Air Laboratory Results Short CBC 11/28/23 11/29/23 Range/Units 23:40 07:48 WBC 6.42 5.26 (4.8-10.8) K/ul Hgb 17.5 14.8 (14.0-18.0) g/dl Hct 50.3 44.2 (42.0-52.0) % Plt Count 226 183 (130-400) K/uL BMP 11/28/23 11/29/23 23:40 07:48 Sodium 145 143 Potassium 3.2 L 4.8 D Chloride 107 112 H Carbon Dioxide 25 27 BUN 15 11 Creatinine 1.03 0.89 Glucose 114 H 110 H Calcium 9.8 8.6 Liver Function 11/28/23 Range/Units 23:40 Total Bilirubin 0.5 (0.2-1.0) mg/dl AST 31 (13-39) U/L ALT 46 (7-52) U/L Alkaline Phosphatase 73 (34-104) U/L Albumin 5.2 H (3.4-5.0) gm/dl
--- NOTE | 2023-11-29 13:58 | Discharge Summary ---
Date of Service November 29, 2023 Admission HPI Per Admitting Provider History obtained from patient, family, and records. Medical history significant for atrial flutter status post ablation, hyperlipidemia, myotonic muscular dystrophy, past tobacco abuse. Last confinement August 2017 for paroxysmal atrial flutter status post ablation. Patient metoprolol and Xarelto discontinued on discharge. Last night, patient experienced palpitations without chest pain or SOB. No unusual stress at home or at work. Denies inordinate caffeine intake. Patient noted to be in rapid A-fib upon arrival at the ER. IV Cardizem infusion initiated at the ER. 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 Exam Per Admitting Provider GENERAL: Comfortable, pleasant, myoclonic facies, no respiratory distress, looks older than stated age SKIN: Normal color, warm HEENT: [place] palpebral conjunctivae, no ptosis, dry buccal mucosa NECK : Supple, no tenderness CHEST : CTA, no tenderness HEART : Irregular, no obvious murmurs ABDOMEN: no distention, nontender EXTREMITIES : No LE swelling/tenderness, no other conspicuous deformities noted NEUROLOGIC : Coherent, no facial asymmetry, no other gross focality Principal Diagnosis Atrial Fibrillation Discharge Data Allergies Allergy/AdvReac Type Severity Reaction Status Date / Time No Known Allergies Allergy Verified 11/29/23 01:02 Consultations 11/29/23 00:43 ED Decision to Admit Stat 11/29/23 04:22 Consult Cardiology Routine Procedures Performed Laboratory Results WBC 5.26 K/ul (4.8-10.8) 11/29/23 07:48 RBC 4.77 M/uL (4.70-6.10) 11/29/23 07:48 Hgb 14.8 g/dl (14.0-18.0) 11/29/23 07:48 Hct 44.2 % (42.0-52.0) 11/29/23 07:48 MCV 92.7 fL (80.0-100.0) 11/29/23 07:48 MCH 31.0 pg (25.0-34.0) 11/29/23 07:48 MCHC 33.5 g/dL (32.0-36.0) 11/29/23 07:48 RDW Std Deviation 40.9 fL (36.4-46.3) 11/29/23 07:48 RDW Coeff of Tacho 12.0 % (11.5-14.5) 11/29/23 07:48 Plt Count 183 K/uL (130-400) 11/29/23 07:48 MPV 9.2 fL (9.4-12.4) L 11/29/23 07:48 Immature Gran % (Auto) 0.2 % 11/29/23 07:48 Neut % (Auto) 46.3 % 11/29/23 07:48 Lymph % (Auto) 42.8 % 11/29/23 07:48 Tillman % (Auto) 9.7 % 11/29/23 07:48 Eos % (Auto) 0.8 % 11/29/23 07:48 Baso % (Auto) 0.2 % 11/29/23 07:48 Neut # (Auto) 2.44 K/uL (1.40-6.50) 11/29/23 07:48 Lymph # (Auto) 2.25 K/uL (1.20-3.40) 11/29/23 07:48 Tillman # (Auto) 0.51 K/uL (0.11-0.59) 11/29/23 07:48 Eos # (Auto) 0.04 K/uL (0.00-0.50) 11/29/23 07:48 Baso # (Auto) 0.01 K/uL (0.00-0.20) 11/29/23 07:48 Immature Gran # (Auto) 0.01 K/uL (0.01-0.20) 11/29/23 07:48 Neutrophils % (Manual) 34 % 11/28/23 23:40 Lymphocytes % (Manual) 22 % 11/28/23 23:40 Monocytes % (Manual) 7 % 11/28/23 23:40 Eosinophils % (Manual) 2 % 11/28/23 23:40 Neutrophils # (Manual) 2.18 K/uL (1.40-6.50) 11/28/23 23:40 Total Absolute Neuts 2.18 K/uL (1.4-6.5) 11/28/23 23:40 Lymphocytes # (Manual) 1.41 K/uL (1.2-3.4) 11/28/23 23:40 Total Abs Lymphocytes 3.66 K/uL (1.2-3.4) H 11/28/23 23:40 Monocytes # (Manual) 0.45 K/uL (0.11-0.59) 11/28/23 23:40 Eosinophils # (Manual) 0.13 K/uL (0-0.50) 11/28/23 23:40 Large Granular Lymphs 35 % 11/28/23 23:40 # Lrg Granular Lymphs 2.25 K/uL 11/28/23 23:40 RBC Morphology Unremarkable 11/28/23 23:40 PT 10.9 Seconds (9.0-12.0) 11/28/23 23:40 INR 1.0 (0.9-1.1) 11/28/23 23:40 APTT 30 Seconds (21-31) 11/28/23 23:40 PTT Ratio 1.1 11/28/23 23:40 Heparin Anti-Xa, Unfract 0.42 IU/ml (0.3-0.7) 11/29/23 07:48 Sodium 143 mmol/L (136-145) 11/29/23 07:48 Potassium 4.8 mmol/L (3.5-5.1) D 11/29/23 07:48 Chloride 112 mmol/L (98-107) H 11/29/23 07:48 Carbon Dioxide 27 mmol/L (21-32) 11/29/23 07:48 Anion Gap 4 (3-11) 11/29/23 07:48 BUN 11 mg/dl (6-23) 11/29/23 07:48 Creatinine 0.89 mg/dl (0.6-1.4) 11/29/23 07:48 Est Cr Clr Drug Dosing 121.5 ml/min 11/29/23 07:48 Est GFR ( Amer) 124.8 ml/min 11/29/23 07:48 Est GFR (Non-Af Amer) 107.7 ml/min 11/29/23 07:48 BUN/Creatinine Ratio 12.4 (10-20) 11/29/23 07:48 Glucose 110 mg/dl (70-99(Fasting)) H 11/29/23 07:48 Calcium 8.6 mg/dl (8.6-10.3) 11/29/23 07:48 Magnesium 2.4 mg/dl (1.7-2.4) 11/28/23 23:40 Total Bilirubin 0.5 mg/dl (0.2-1.0) 11/28/23 23:40 AST 31 U/L (13-39) 11/28/23 23:40 ALT 46 U/L (7-52) 11/28/23 23:40 Alkaline Phosphatase 73 U/L (34-104) 11/28/23 23:40 Troponin I High Sens 17.9 pg/ml (0-20) 11/28/23 23:40 Total Protein 8.4 gm/dl (6.0-8.3) H 11/28/23 23:40 Albumin 5.2 gm/dl (3.4-5.0) H 11/28/23 23:40 Globulin 3.2 gm/dl (2.5-4.0) 11/28/23 23:40 Albumin/Globulin Ratio 1.6 (0.9-2) 11/28/23 23:40 TSH 1.619 uIu/ml (0.300-4.500) 11/28/23 23:40 Impressions Chest X-Ray 11/28/23 23:48 XR chest 1V portable CLINICAL HISTORY: Dysrhythmia. COMPARISON STUDY: No previous studies for comparison. FINDINGS: Lung volumes are mildly diminished. This likely reflects a hypoventilatory study and accounts for mild prominence of the vasculature. There is no pneumothorax or pleural effusion. No consolidation. No evidence for overt pulmonary edema. IMPRESSION: Low lung volumes likely reflecting a hypoventilatory study. No definite acute cardiopulmonary findings. ACT 112: Negative or not required by law. Electronically signed by: Varun Dee M.D. 11/29/2023 7:56 AM Hospital Course (1) Atrial fibrillation with rapid ventricular response: New onset A-fib H/O Atrial flutter S/P Ablation TSH normal --ECHO: Left ventricle systolic function is normal. EF 50 to 55%. Left ventricular wall motion is normal. Left atrial size is normal. Trace aortic regurgitation. Trace mitral regurgitation. --[id number] score: 0 -- IV heparin discontinued Started on metoprolol 25 mg twice a day Started on aspirin 81 mg daily per cardiology Also on Mexiletine Appreciate cardiology input Converted to sinus spontaneously Advise to avoid alcohol, caffeine use Needs follow-up with cardiology on discharge Hypokalemia Replete electrolytes as needed Hyperlipidemia Continue simvastatin Myotonic muscular dystrophy Progressive disease on Mexiletine Past Tobacco abuse per records DVT Px: IV heparin--discontinued Encourage to ambulate Code Status Full code Total Time Total Time Spent Total Time Spent (In Minutes): 45 minutes Discharge Plan Discharge Items Patient Disposition: Home - Self-Care Reason For Visit: AF Discharge Diagnosis: Atrial fibrillation Condition on Discharge: Good Activity: Per Instructions section Exercise/Sports: Wait until after follow-up appointment Non-emergency contact: Primary Care Provider and Extrusion Press Adjuster Call non-emergency contact if: you have any medication questions, your symptoms worsen, your pain is concerning for you and you have a fever Follow-up/Referrals: Cardiac Studies [Other] (For Zio Patch Placement 12/05/2023 10:15 AM Provider NURSE [facility] Department Cardiac Studies, [facility] ) Carolina Leong CRNP [Nurse Practitioner] - (Date & Time 01/08/2024 8:00 AM Provider Carolina Leong CRNP Department Cardiology, [facility] ) Lexus Muñiz DO [Primary Care Provider] - (Date & Time 12/04/2023 2:00 PM Provider Lexus Muñiz DO Department Family Practice [facility] ) Diet: Heart Healthy Addtl Attending Provider Instructions: Follow-up with your primary care physician in 1 week Follow-up with your educational adviser / corporate attorney as recom mended -- Avoid alcohol, caffeine use as recommended by your educational adviser. Seek immediate medical attention if your symptoms reoccur or worsen Please take all medications as instructed on discharge list below. Please call if you have any questions or problems. You can reach a [facility] hospitalist on duty at [facility] 24 hours a day by calling [phone] Pending Studies at Discharge: No Stand-Alone Forms: My [facility] [employer], Smoking Cessation Medications and DC Order Prescriptions: New aspirin 81 mg Tablet,Delayed Release (Dr/Ec) 81 mg PO QAM Qty: 30 0RF metoprolol tartrate 25 mg Tablet 25 mg PO BID Qty: 60 1RF Continued multivitamin Tablet 1 tab PO DAILY mexiletine 150 mg capsule 150 mg PO TID simvastatin 20 mg tablet 20 mg PO HS coenzyme Q10 [CoQ-10] 100 mg Capsule 100 mg PO DAILY omega 2-gqf-cpd-fish oil [Fish Oil] 1,000 mg (120 mg-180 mg) Capsule 1 cap PO DAILY Discharge Orders: Discharge Order (Routine); Ordered 11/29/23 Ordered By: Sanjay Stahl Admission Data Admit Date/Time: 11/29/23 03:07 Attending Provider: Sanjay Stahl Admit Provider: Memo Peo Primary Care Provider: Lexus Muñiz Other Providers: Carolina Leong; Deon Reagan; Alessandro Perla; Dom Du; Bridger Magdaleno; Bertram Donahue; Afshan Fields; Joellen La; Aretha Nielson; Carolina Saleh; Howard Alvarez; Markell Humphrey; Alyson Worrell; Vida Alexander; Martha Oviedo; Robert Saravia; Memo Poe
--- OUTSIDE RECORDS SUMMARY | 2023-11-29 15:06 | External Medical Summary | Summary of Care ---
Author Name Unknown Organization [facility] Address [address] [place] [address] Phone [phone] Care Team Providers Care Field Placement Director Name Role Phone Lexus Muñzi DO Primary Care Provider [phone] Reason for Visit * Reason Onset Date Comments Medication Refill 09/08/2023 Encounter Details Date Type Department Care Team ([facility] Contact Info) Description 09/08/2023 Refill Neurology [facility] [address] [place] [address] Edy Sánchez DO [address] [facility] [place] [address] Myotonic muscular dystrophy (HCC); Myotonia Allergies No known active allergiesdocumented as of this encounter (statuses as of 09/11/2023) Medications Medication Sig Dispensed Refills Start Date End Date Status Multiple Vitamins-Minerals (MULTIVITAMIN ADULT) TABS Take 1 Tab by mouth 2 times a day. 0 08/27/2017 Active Sasser-3 Fatty Acids (FISH OIL OMEGA-3) 1000 MG CAPS Take 1 Cap by mouth 2 times a day. 0 08/27/2017 Active CoQ10 50 MG Oral Capsule Take by mouth daily . 0 Active Simvastatin 20 MG Oral Tablet (Zocor)Indication s:Hypertriglyceri demia Take 1 Tablet by mouth at bedtime. 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 History of tobacco use 08/28/2018 Hypertriglyceridemia 09/14/2017 S/P ablation of atrial flutter 09/11/2017 Overview: Cristinaali documented as of this encounter (statuses as of 09/11/2023) Resolved Problems Problem Noted Date Diagnosed Date Resolved Date Typical atrial flutter 08/28/201808/28 documented as of this encounter (statuses as of 09/11/2023) Immunizations Name Administration Dates Next Due Anthrax Vaccine 06/12/2011,01/04/2011,11/21/2010 COVID-19 mRNA, LNP-s, No Pre serve, 2-Dose Series ([employer]) 01/16/2021,12/16/2020 HEP A - Hepatitis A (Adult > 18 yrs) 07/18/2010, 11/24/2009 Hepatitis B, 20+ yrs 11/24/2009 IPV - Polio Virus Vaccine (Inact) 11/18/2009 [place] Encephalitis Vaccine 06/12/2011 MMR - Measles/Mumps/Rubella Vaccine 11/24/2009 Seasonal Influenza, Split, I IV3, With Preserve, Inj 11/18/2009 TDAP (age 10 and older)(Boostrix) 09/05/2021 Vaccinia (Smallpox) 11/01/2010 Varicella Vaccine (Chicken Pox) 11/24/2009 documented as of this encounter Social History Tobacco Use Types Packs/Day Years Used Date Smoking Tobacco: Former Smokeless Tobacco: Former Chew Comments:weekends Alcohol Use Standard Drinks/Week Comments Yes 0 (1 standard drink = 0.6 oz pur e alcohol) 2-3 times weekly PHQ-2 Answer Date Recorded PHQ-2 Score 0 08/15/2019 Hunger Vital Sign Answer Date Recorded Within the past 12 months, y ou worried that your food would run out before you got the money to buy more. Never true 08/02/20 Within the past 12 months, t he food you bought just didn't last and you didn't have money to get more. Never true 08/02/2023 Sex and Gender Information Value Date Recorded Sex Assigned at Male 08/02/2023 8:39 AM EST Gender Identity Male 08/02/2023 8:39 AM EST Sexual Orientation Straight 08/02/2023 8: 39 AM EST Job Start Date Occupation Industry Not on file Not on file Not on file documented as of this encounter Miscellaneous Notes * Telephone Encounter - Edy Sánchez DO - 09/11/2023 9:02 AM EST Signed Prescriptions: Disp Refills Mexiletine HCl 150 MG Oral Capsule (Mexiti*90 Cap*5 Si capsule 3x daily Authorizing Provider: EDY SÁNCHEZ * Telephone Encounter - Jerri Wolff LPN - 09/11/2023 8:05 AM ESTPending Prescriptions: Disp Refills Mexiletine HCl 150 MG Oral Capsule (Mexiti*90 Cap*5 Si capsule 3x daily documented in this encounter Plan of Treatment Upcoming Encounters Date Type Department Care Team (Late st Contact Info) Description 2023 4:20 PM EST Office Visit Neurology [facility] [address] [place] [address] Edy Sánchez DO [address] [place] [address] 01/04/2024 3:30 PM EDT Office Visit Cardiology, [facility] [address] [facility] [place] [address] Carolina Leong CRNP [address] [place] [phone] 08/18/2024 11:20 AM EST Office Visit Family Practice [facility] [address] [facility] [place] [address] Lexus Muñiz DO [address] [place] [address] Health Maintenance Due Date Last Done Comments Hepatitis B (2 of 3 - 19+ 3-dose series) 12/22/2009 11/24/2009 Depression Screening 08/15/2020 08/15/2019 COVID-19 Vaccine (3 - 2022-24 season) 2023 01/16/2021, 12/16/2020 Influenza Vaccine (FLU shot) (#1) 2023 06/05/2012, 06/19/2011, 06/15/2010, Additional history exists DTaP,Tdap,and Td Vaccines (2 - Td or Tdap) 09/05/2031 09/05/2021 MENINGOCOCCAL (MENACTRA/MENVEO) Aged Out 11/18/2009, 12/23/2002 No longer eligibl e based on patient's age to complete this topic Hepatitis C Screening Completed 08/29/2017 GARDASIL-HPV IMMUNIZATION SERIES Aged Out No longer eligible based on patient's age to complete this topic Pneumococcal Vaccine: Pediatrics (0 to 5 Years) and At-Risk Patients (6 to 64 Years) Aged Out No longer eligible based on patient's age to complete this topic documented as of this encounter Medical Devices Not on filedocumented as of this encounter Visit Diagnoses Diagnosis Myotonic muscular dystrophy (HCC) Myotonic muscular dystrophy Myotonia Spasm of muscle documented in this encounter Advance Directives Latest Code Status on File Code Status Date Activated Date Inactivated Comments Full Code 08/28/2017 6:56 PM 08/30/2017 7:12 PM Thi s order reflects the patients wishes and were consensually agreed upon. Question Answer Comments Discussion of Advance Directives occurred with: Not Discussed Does the patient have a Living Will? Yes, not currently available Does the patient have Health Care Power of Wildlife Technician? Yes, not currently available Care Teams Field Placement Director Relationship Specialty Start Date End Date Lexus Muñiz DO [address] [place] [address] PCP - General Family Medicine 08/27/17 documented as of this encounter
--- OUTSIDE RECORDS SUMMARY | 2023-11-29 15:06 | External Medical Summary | Summary of Care ---
Author Name Unknown Organization [facility] Address [address] [place] [address] Phone [phone] Care Team Providers Care Monumental Stonemason Name Role Phone Lexus Muñiz DO Primary Care Provider [phone] Reason for Visit * Reason Comments Return Neuro Encounter Details Date Type Department Care Team ([facility] st Contact Info) Description 2023 4:20 PM EST Office Visit Neurology [facility] [address] [place] [address] Edy Sánchez DO [address] [facility] [address] Myotonic muscular dystrophy (HCC)* Allergies No known active allergiesdocumented as of this encounter (statuses as of 10/24/2023) Medications Medication Sig Dispensed Refills Start Date End Date Status Multiple Vitamins-Minerals (MULTIVITAMIN ADULT) TABS Take 1 Tab by mouth 2 times a day. 0 08/27/2017 Active Louisville-3 Fatty Acids (FISH OIL OMEGA-3) 1000 MG CAPS Take 1 Cap by mouth 2 times a day. 0 08/27/2017 Active CoQ10 50 MG Oral Capsule Take by mouth daily . 0 Active Simvastatin 20 MG Oral Tablet (Zocor)Indications:H ypertriglyceridemia Take 1 Tablet by mouth at bedtime. 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 History of tobacco use 08/28/2018 Hypertriglyceridemia 09/14/2017 S/P ablation of atrial flutter 09/11/2017 Overview: Abhinav documented as of this encounter (statuses as of 10/24/2023) Resolved Problems Problem Noted Date Diagnosed Date Resolved Date Typical atrial flutter 08/28/201808/28 documented as of this encounter (statuses as of 10/24/2023) Immunizations Name Administration Dates Next Due Anthrax Vaccine 06/12/2011,01/04/2011,11/21/2010 COVID-19 mRNA, LNP-s, No Pre serve, 2-Dose Series ([employer]) 01/16/2021,12/16/2020 HEP A - Hepatitis A (Adult > 18 yrs) 07/18/2010, 11/24/2009 Hepatitis B, 20+ yrs 11/24/2009 IPV - Polio Virus Vaccine (Inact) 11/18/2009 [place]mese Encephalitis Vaccine 06/12/2011 MMR - Measles/Mumps/Rubella Vaccine [...] money to buy more. Never true 08/02/20 23 Within the past 12 months, t he [...] on file documented as of this encounter Last Filed Vital Signs Vital Sign Reading Time Taken Comments Blood Pressure 122/80 2023 4:08 PM EST Pulse 62 2023 4:08 PM EST Temperature 35.6 C (96.1 F) 2023 4:08 PM ES T Respiratory Rate 18 2023 4:08 PM EST Oxygen Saturation 99% 2023 4:08 PM EST Inhaled Oxygen Concentration - - Weight 83.1 kg (183 lb 1.6 oz) 2023 4:08 P M EST Height - - Body Mass Index 24.83 08/16/2023 10:31 AM EST documented in this encounter Progress Notes * Edy Sánchez, - 2023 4:12 PM EST Progress Note - Neurology [facility] [address] [place] [address] NAME: Rishabh Bentley Date of : 1985 Date of Visit: 04/17/23 Chief Complaint: Chief Complaint Patient presents with Return Neuro Subjective: 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 Patient was last seen by myself April 2023. Prior to that he was following with Dr. Ceballos and Joellen Salgado PA-C. He had an EMG performed in September of 2021 by myself that was suggestive of myotonic dystrophy. He he then underwent genetic testing which confirmed the suspicion. Mexiletine has helped with the head trimmer myotonia. He continues to lift weights. 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 He has considered the need for disability or early care home in the near future. Hedenies any muscle pain. He is following with Cardiology as well as sleep medicine. Recent sleep study was negative for obstructive sleep apnea. He continues to have daytime somnolence. HOME MEDICATIONS : Current Outpatient Medications Medication Sig Dispense Refill Multiple Vitamins-Minerals (MULTIVITAMIN ADULT) TABS Take 1 Tab by mouth 2 times a day. Louisville-3 Fatty Acids (FISH OIL OMEGA-3) 1000 MG CAPS Take 1 Cap by mouth 2 times a day. CoQ10 50 MG Oral Capsule Take by mouth daily . Simvastatin 20 MG Oral Tablet (Zocor) Take 1 Tablet by mouth at bedtime. 90 Tablet 3 Mexiletine HCl 150 MG Oral Capsule (Mexitil) 1 capsule 3x daily 90 Capsule 5 No current facility-administered medications for this visit. Review of patient's allergies indicates: No Known Allergies PHYSICAL EXAMINATION: Vital Signs: BP 122/80 (BP Site: Right Arm, BP Position: Sitting, BP Cuff Size: Regular) | Pulse 62 | Temp 35.6 C (96.1 F) (Tympanic) | Resp 18 | Wt 83.1 kg (183 lb 1.6 oz) | SpO2 99% | BMI 24.83 kg/m | BSA2.05 m EXAM: Constitutional: appearance normally developed, well nourished and non-obes Head and Face: normocephalic and atraumatic Eyes: normal lids, normal conjunctiva Neck: supple Respiratory: normal effort Cardiovascular: regular rhythm and normal pulses Abdomen: non distended Skin: no rashes, lesions, or ulcers noted Psychiatric: normal judgement and insight, normal mood and normal affect NEUROLOGIC EXAMINATION: Appearance: no acute distress Orientation: awake, alert and oriented x 3 Mental Status: alert Attention: normal Knowledge: appropriate Language: no aphasia Speech: Mild dysarthria Cranial Nerves: CN 2 - no visual defect on confrontation and pupils round, equal, reactive to light CN 3, 4, 6 - extra-ocular movements intact and no nystagmus CN 5 - facial sensation intact CN 7 - mild facial weakness CN 8 - intact hearing CN 9, 10 - palate symmetric CN 11 - good shoulder shrug CN 12 - tongue midline Gait: stable, no ataxia Coordination: no ataxia with finger to nose testing Sensory: intact to light touch Muscle Tone: normal Muscle exam: 5/5 throughout in the proximal upper extremities although markedly weak hand head trimmer, 4- out of 5 Reflexes: 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 LABORATORY: Labs reviewed and pertinent findings are indicated below: Component Latest Ref Rng 08/16/2023 BUN 6 - 20 mg/dL 13 Creatinine 0.6 - 1.2 mg/dL 1.0 Estimated Glomerular Filtration Rate >=60 mL/min >90 Sodium 135 - 146 mmol/L 142 Potassium 3.5 - 5.1 mmol/L 5.1 Chloride 98 - 107 mmol/L 103 CO2 22 - 32 mmol/L 29 Anion Gap 7 - 15 mmol/L 10 Glucose 70 - 120 mg/dL 119 Albumin 3.8 - 5.0 g/dL 4.8 AST 10 - 50 U/L 32 Alkaline Phosphatase 35 - 130 U/L 73 Bilirubin, Total <=1.2 mg/dL 0.6 Calcium 8.4 - 10.2 mg/dL 10.4 (H) Protein 6.0 - 8.3 g/dL 7.3 ALT 10 - 50 U/L 72 (H) Triglycerides <=174 mg/dL 204 (H) Cholesterol <200 mg/dL 218 (H) HDL Cholesterol >39 mg/dL 47 Non-HDL Cholesterol <=159 mg/dL 171 (H) LDL Cholesterol <=129 mg/dL 130 (H) Hemoglobin A1C 4.0 - 5.6 % 5.5 Estimated Average Glucose <126 mg/dL 111 Legend: (H) High Myotonia Panel Positive Abnormal Comment: Date Test(s) Started: 11/04/2021 10:29:13 Sample Source: Blood in EDTA Date Collected: 11/01/2021 Date Received: 11/03/2021 Testing Date Started: 11/04/2021 Date Reported: 11/24/2021 Provider Account #: [id number] Silva HERNDON, JIE Additional Provider: Test(s) Requested Myotonia Panel / Repeat, Sequencing, and Deletion/Duplication Analysis Result: Positive Gene Mode of Inheritance Variant Zygosity Classification DMPK Autosomal dominant Repeat Number: >200 Repeat Number: 12 Repeat Number: 142 MOSAIC Heterozygous MOSAIC Pathogenic Variant Normal Pathogenic Variant CNBP Autosomal dominant Repeat Number: <26 Homozygous Normal Reference Range Classification DMPK CTG Repeat SizeCNBP CCTG Repeat Size [id number] or less26 or less Premutation/[id number] Full [id number] or or greater Interpretation This individual harbors two expanded alleles in the DMPK gene within the full mutation range, which is consistent with a diagnosis of myotonic dystrophy, type 1. Clinical Summary The DMPK gene encodes the dystrophia myotonica protein kinase, a serine/threonine protein kinase that regulates protein signaling in the neuromuscular junction and in the central nervous system (Davonte et al., 1993; van eugene Reynaldo et al., 1993). Expansion of a CTG trinucleotide repeat in the 3'UTR of the DMPK gene causes myotonic dystrophy, type 1 (DM1, Steinert disease) (Bird, 2018). DM1 is a multi-system disorder which varies in clinical severity, and has been categorized into three somewhat overlapping phenotypes (Santi et al., 2018). Mild DM1 is late onset (20-70 years), and is characterized by mild myotonia and/or cataracts. Classic DM1 is earlier onset (10-30 years), and is characterized by myotonia, prominent facial weakness, muscle weakness and wasting, cataracts, and, often, cardiac conduction abnormalities. Congenital DM1 can present before with polyhydramnios and reduced movement or postnatally with severe muscle weakness, hypotonia, feeding difficulties, respiratory insufficiency, and intellectual disability (Bird, 2018). Repeat expansions of <250 generally result in the mild to classic form of DM1 (Lon et al., 2002); however, larger repeat expansions do not appear to have the same linear correlation with wer-an-zsfex and disease severity (Isiah et al., 1999; Lon et al., 2002; Chris et al., 2014). Some studies do suggest that congenital DM1 is more commonly associated with repeats of greater than 2,000 repeats, but several studies have identified individuals with Classic DM1 and greater than 1000 repeats (Zenobia and Caitie, 2015; Wesley et al., 1992; Pascual et al., 1995; James et al., 1993). Premutation alleles with 35-49 CTG repeats are not associated with symptoms of DM1, however all alleles with greater than 35 repeats are meiotically unstable and expansion of these alleles has been observed in their transmission from parent to offspring. Therefore, offspring of these individuals have an increased risk of inheriting an expanded allele and being affected with DM1 (Pascual et al., 2001). Review of prior Diagnostic Tests: Polysomnogram: Normal. No evidence of obstructive sleep apnea EMG performed on 09/21/2021: Abnormal study. This electrodiagnostic study shows evidence of a underlying myopathy with active denervation as well as intermittent myotonic discharges in most of the muscles in the upper extremity more predominantly in the distal muscles. These findings in addition to his history of early-onset cataracts would be supportive type 1 myotonic dystrophy. Neurology consultation recommended. Review of prior Radiology Studies: IMPRESSION / PLAN: Rishabh was seen today for return neuro. 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 He is following with Cardiology s/p ablation for atrial flutter. EF is Normal. Sleep study was Negative for JAMES. Will discuss with sleep medicine starting modafinil for daytime somnolence associated with myotonic dystrophy. He is watching for enrollment in a clinical trial for myoto aspen dystrophy at [facility]. Previous labs showed mild elevation in ALT (? Mexiletine). Will get follow upCMP today. In regards to disability I am happy to complete any forms should he desire to pursue this now or in the future. I will arrange for formal follow-up in 6 months or sooner if needed. Edy Sánchez DO documented in this encounter Nursing Notes * Jerri Wolff LPN - 2023 4:07 PM EST Patient verified identity by spelling of last name and date. Chief Complaint Patient presents with Return Neuro documented in this encounter Plan of Treatment Upcoming Encounters Date Type Department Care Team (Late st Contact Info) Description 04/22/2024 3:40 PM EDT Office Visit Neurology [facility] [address] [facility] [place] [address] Edy Sánchez DO [address] [place] [address] 08/18/2024 11:20 AM EST Office Visit Family [facility] [address] [place] [address] Lexus Muñiz DO [address] [place] [address] Health Maintenance Due Date Last Done Comments [...] Not on filedocumented as of this encounter Procedures Procedure Name Priority Date/Time Associated Diagnosis Comments COMPREHENSIVE METABOLIC PANEL Routine 2023 4:40 PM EST Myotonic muscular dystrophy (HCC) documented in this encounter Results * (ABNORMAL) COMPREHENSIVE METABOLIC PANEL (2023 4:40 PM EST) BUN 10 6 - 20 mg/dL 2023 9:59 PM EST [facility] Creatinine 1.0 0.6 - 1.2 mg/dL 2023 9:59 PM EST [facility] Estimated Glomerular Filtration Rate >90 >=60 mL/min 2023 9:59 PM EST [facility] Comment:eGFR is calculated b ased on the CKD-EPI 2020 equation Sodium 143 135 - 146 mmol/L 2023 9:59 PM EST [facility] Potassium 4.7 3.5 - 5.1 mmol/L 2023 9:59 PM EST [facility] Chloride 105 98 - 107 mmol/L 2023 9:59 PM EST [facility] CO2 28 22 - 32 mmol/L 2023 9:59 PM EST [facility] Anion Gap 10 7 - 15 mmol/L 2023 9:59 PM EST [facility] Glucose 95 70 - 120 mg/dL 2023 9:59 PM EST [facility] Albumin 4.8 3.8 - 5.0 g/dL 2023 9:59 PM EST [facility] AST 34 10 - 50 U/L 2023 9:59 PM EST [facility] Comment:Result may be falsel y elevated due to hemolysis. Alkaline Phosphatase 78 35 - 130 U/L 2023 9:59 PM EST [facility] Bilirubin, Total 0.4 <=1.2 mg/dL 2023 9:59 PM EST [facility] Calcium 10.2 8.4 - 10.2 mg/dL 2023 9:59 PM EST [facility] Protein 7.1 6.0 - 8.3 g/dL 2023 9:59 PM EST [facility] ALT 59(H) 10 - 50 U/L 2023 9:59 PM EST [facility] Blood Venous blood specimen / Unknown Venipuncture / Unknown 2023 4:40 PM EST 2023 4:40 PM EST Edy Sánchez DO LAB BLOOD OR DERABLES Performing Organization Address City/State/[facility] Co de Phone Number [facility] [address] [place] [address] documented in this encounter Visit Diagnoses Diagnosis Myotonic muscular dystrophy (HCC)- Primary Myotonic muscular dystrophy documented in this encounter Advance Directives Latest [...] the patient have Health Care Power of Special Delivery Worker? Yes, not currently available Care Teams Monumental Stonemason Relationship Specialty Start Date End Date Lexus Muñiz DO [address] [place] [address] PCP - General Family Medicine 08/27/17 documented as of this encounter"
--- OUTSIDE RECORDS SUMMARY | 2023-11-29 15:06 | External Medical Summary | Summary of Care ---
Author Name Unknown Organization [facility] Address [address] [place] [address] Phone [phone] Care Team Providers Care Historical Society Director Name Role Phone Lexus Plascencia DO Primary Care Provider [phone] Reason for Visit * Reason Comments Follow Up Pt here for yearly c heck up and also physical for work insurance, and new info on diabetes. Physical-Exam Encounter Details Date Type Department Care Team ([facility] st Contact Info) Description 08/16/2023 10:40 AM EST Office Visit Family Practice [facility] [address] [place] [address] Lexus Plascencia DO [address] [place] [address] Well adult exam*; S/P ablation of atrial flutter; Myotonic muscular dystrophy (HCC); Hypertriglyceridemia Allergies No known active allergiesdocumented as of this encounter (statuses as of 08/16/2023) Medications Medication Sig Dispensed Refills Start Date End Date Status Multiple Vitamins-Minerals (MULTIVITAMIN ADULT) TABS Take 1 Tab by mouth 2 times a day. 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 History of tobacco use 08/28/2018 Hypertriglyceridemia 09/14/2017 S/P ablation of atrial flutter 09/11/2017 Overview: Cristinaali documented as of this encounter (statuses as of 08/16/2023) Resolved Problems Problem Noted Date Diagnosed Date Resolved Date Typical atrial flutter 08/28/201808/28 documented as of this encounter (statuses as of 08/16/2023) Immunizations Name Administration Dates Next Due Anthrax Vaccine 06/12/2011,01/04/2011,11/21/2010 COVID-19 mRNA, LNP-s, No Pre serve, 2-Dose Series ([employer]) 01/16/2021,12/16/2020 HEP A - Hepatitis A (Adult > 18 yrs) 07/18/2010, 11/24/2009 Hepatitis B, 20+ yrs 11/24/2009 IPV - Polio Virus Vaccine (Inact) 11/18/2009 [place] Encephalitis Vaccine 06/12/2011 MMR - Measles/Mumps/Rubella Vaccine 11/24/2009 Seasonal Influenza, Split, I IV3, With Preserve, Inj 11/18/2009 TDAP (age 10 and older)(Boostrix) 09/05/2021 Vaccinia (Smallpox) 11/01/2010 Varicella Vaccine (Chicken Pox) 11/24/2009 documented as of this encounter Social History Tobacco Use Types Packs/Day Years Used Date Smoking Tobacco: Former Smokeless Tobacco: Former Chew Tobacco Cessation:Counseling Given: Not Answered Comments:weekends Alcohol Use Standard Drinks/Week Comments Yes [...] Sign Reading Time Taken Comments Blood Pressure 122/82 08/16/2023 10:31 AM EST Pulse 58 08/16/2023 10:31 AM EST Temperature 36.3 C (97.3 F) 08/16/2023 10:[address] Respiratory Rate 16 08/16/2023 10:31 AM EST Oxygen Saturation - - Inhaled Oxygen Concentration - - Weight 82.1 kg (181 lb) 08/16/2023 10:31 AM EST Height 182.9 cm (6') 08/16/2023 10:31 AM EST Body Mass Index 24.55 08/16/2023 10:31 AM EST documented in this encounter Progress Notes * eLxus Plascencia, - 08/16/2023 10:34 AM EST Subjective: Rishabh Bentley is a 37 year old male. Chief Complaint Patient presents with Follow Up Pt here for yearly check up and also physical for work insurance, and new info on diabetes. Physical-Exam HPI: This is a 37 year old male with PMHx as below presents for annual well check. Mexiletine - MMD Statin - dl Cardio following - hyperTG, a flutter - will need to get pacemaker in the future electrical [facility]ed [facility] - will know in a few weeks [facility] -- looking to get into clinical trial Patient Active Problem List Diagnosis Code S/P ablation of atrial flutter Z98.890, Z86.79 Hypertriglyceridemia E78.1 History of tobacco use Z87.891 Myotonic muscular dystrophy (HCC) G71.11 Current Outpatient Medications Medication Sig Dispense Refill Multiple Vitamins-Minerals (MULTIVITAMIN ADULT) TABS Take 1 Tab by mouth 2 times a day. Ch[place]-3 Fatty Acids (FISH OIL OMEGA-3) 1000 MG [...] No current facility-administered medications for this visit. Past Medical History: Diagnosis Date Atrial flutter (HCC) 08/2017 Typical atrial flutter (HCC) 08/28/2018 Past Surgical History: Procedure Laterality Date ANESTH, CARDIAC ELECTROPHYS 09/2017 CATARACT SURGERY,COMPLEX UPPER ARM/ELBOW SURGERY NEC Review of patient's allergies indicates: No Known Allergies Family History Problem Relation Age of Onset Heart disease Mother Hypertension Mother Heart disease Father Hypertension Father Hypertension Brother Family Status Relation Status Mo Fa Alive Bro (Not Specified) Social History Socioeconomic History Marital status: Single Spouse name: Not on file Number of children: Not on file Years of education: Not on file Highest education level: Not on file Occupational History Not on file Tobacco Use Smoking status: Former Smokeless tobacco: Former Types: Chew Tobacco comments: weekends Vaping Use Vaping Use: Never used Substance and Sexual Activity Alcohol use: Yes Comment: 2-3 times weekly Drug use: No Sexual activity: Not on file Other Topics Concern Not on file Social History Narrative Not on file Social Determinants of Health Financial Resource Strain: Not on file Food Insecurity: No Food Insecurity (08/02/2023) Hunger Vital Sign Worried About Running Out of Food in the Last Year: Never true Ran Out of Food in the Last Year: Never true Transportation Needs: Not on file Physical Activity: Not on file Stress: Not on file Social Connections: Not on file Intimate Partner Violence: Not on file Housing Stability: Not on file Did the patient complete the screening questionnaire for Depression: Yes. Not Applicable Hospital ER within 30 days: No Patient is able to obtain all of his medications? Yes Patient takes medications as prescribed? Yes Tobacco screening completed today: Yes Non-smoker Dental Exam: Yes Nutrition Assessment: Eats a balanced diet Pain Screening: Yes Are you having any pain? No Review of Systems: As per HPI all other ROS negative. Results for orders placed or performed in visit on 08/21/22 LIPID PANEL WITH DIRECT LDL IF TG IS HIGH Result Value Ref Range Triglycerides 257 (H) <=174 mg/dL Cholesterol 188 <200 mg/dL HDL Cholesterol 40 >39 mg/dL Non-HDL Cholesterol 148 <=159 mg/dL GLUCOSE Result Value Ref Range Glucose 107 70 - 120 mg/dL HEMOGLOBIN A1C Result Value Ref Range Hemoglobin A1C 5.4 4.0 - 5.6 % Estimated Average Glucose 108 <126 mg/dL LDL CHOLESTEROL (DIRECT MEASURE) Result Value Ref Range LDL Cholesterol (Direct Measure) 104 <=129 mg/dL Wt Readings from Last 3 Encounters: 08/16/23 82.1 kg (181 lb) 08/07/23 82.1 kg (181 lb) 04/17/23 83.3 kg (183 lb 9.6 oz) Health Maintenance Due Topic Date Due Hepatitis B (2 of 3 - 19+ 3-dose series) 12/22/2009 Depression Screening 08/15/2020 Influenza Vaccine (FLU shot) (1) 05/11/2023 COVID-19 Vaccine ( season) 2023 OBJECTIVE: Physical Exam: BP 122/82 | Pulse 58 | Temp 36.3 C (97.3 F) (Tympanic) | Resp 16 | Ht 1.829 m (6') | Wt 82.1 kg(181 lb) | BMI 24.55 kg/m | BSA 2.04 m General: alert, healthy, and no distress Eye Exam: PERRLA, extraocular movements intact, conjunctiva are pink and non- injected, sclera clear Oropharynx: no exudate, no erythema, lips, buccal mucosa, and tongue normal, and mucous membranes are moist Heart: regular rate & rhythm, no murmur, and no gallops Lungs: lungs clear to auscultation Abdomen: abdomen soft, non-tender, normal bowel sounds, and no masses or organomegaly Extremities: no joint deformities, effusion, or inflammation, no edema Well adult exam (Primary) - HEMOGLOBIN A1C; Future; Expected date: 08/16/2023 S/P ablation of atrial flutter Myotonic muscular dystrophy (HCC) - HEMOGLOBIN A1C; Future; Expected date: 08/16/2023 Hypertriglyceridemia - HEMOGLOBIN A1C; Future; Expected date: 08/16/2023 Follow Up: Return in about 1 year (around 08/16/2024), or if symptoms worsen or fail to improve, forClinic Visit. | For: Clinic Visit Discussed with patient: -HEALTH PROMOTION: Adequate sleep (8-10 hours/night), regular exercise, balanced diet, dental care,limiting sedentary activities (TV, computer, Internet) -MENTAL HEALTH: Discuss feelings with an someone that they can trust -INJURY PREVENTION: Driving Safety, Seat Belts, Sun Safety, No Weapons, Conflict Resolution, Personal Safety -SUBSTANCE ABUSE: Tobacco, Drugs, Alcohol Lexus Plascencia DO documented in this encounter Plan of Treatment Upcoming Encounters Date Type Department Care Team (Late st Contact Info) Description 2023 4:20 PM EST Office Visit Neurology [facility] [address] [facility] [address] [place] [address] Edy Sánchez DO [address] [facility] [address] [place] [address] 01/04/2024 3:30 PM EDT Office Visit Cardiology, [facility] [address] [facility] [place] [address] Carolina Leong CRNP [address] [facility] [place] [phone] 08/18/2024 11:20 AM EST Office Visit Family Practice [facility] [address] [facility] [place] [address] Lexus Plascencia DO [address] [facility] [place] [address] Scheduled Orders Name Type Priority Associated Diagnoses Orde r Schedule HEMOGLOBIN A1C Lab Routine Well adult exam Myotonic muscular dystrophy (HCC) Hypertriglyceridemia Expected: 08/16/2023 (Approximate), Expires: 08/15/2024 Health Maintenance Due Date Last Done Comments Hepatitis B (2 of 3 - 19+ 3-dose series) 12/22/2009 11/24/2009 Depression Screening 08/15/2020 08/15/2019 COVID-19 Vaccine ( season) 2023 01/16/2021, 12/16/2020 Influenza Vaccine (FLU [...] as of this encounter Visit Diagnoses Diagnosis Well adult exam- Primary Routine general medical examination at a health care facility S/P ablation of atrial flutter Other postprocedural status Myotonic muscular dystrophy (HCC) Myotonic muscular dystrophy Hypertriglyceridemia Pure hyperglyceridemia documented in this encounter Advance Directives Latest [...] the patient have Health Care Power of Pulvi Mixer Operator? Yes, not currently available Care Teams Historical Society Director Relationship Specialty Start Date End Date Lexus Plascencia DO [address] [place] [address] PCP - General Family Medicine 08/27/17 documented as of this encounter"
--- OUTSIDE RECORDS SUMMARY | 2023-11-29 15:06 | External Medical Summary ---
Author Name Unknown Address Unknown Organization [id number]:LABORATORY [facility] [place] - [address] [address] Laboratory Report Ordering Provider Test Date Status MICHAEL GALDAMEZ 08/16/2023 11:39:28 Final Observation Date Value Abnormality Reference (Units ) Status Triglyceride 08/16/2023 11:39:28 204 Above high normal <=174 (mg/dL) Final Triglyceride Reference Range s (mg/dL):
<150 Acceptable
150-174 Borderline high
175-499 High
>=500 Very high Cholesterol 08/16/2023 11:39:28 218 Above high normal <200 (mg/dL) Final Total Cholesterol Reference Ranges (mg/dL):
<200 Desirable
200-239 Borderline high
>=240 High HDL 08/16/2023 11:39:28 47 >39 (mg/dL ) Final HDL Cholesterol Reference Ra nges (mg/dL):
>=60 High (Desirable)
<50 Low (Undesirable) For Females
<40 Low (Undesirable) For Males NON-HDL CHOLESTEROL 08/16/2023 11:39:28 171 Above high normal <=159 (mg/dL) Final Non-HDL Cholesterol Referenc e Range (mg/dL):
<100 Target level for high risk ASCVD patient
<130 Optimal for general population
130-159 Near optimal for general population
160-189 Borderline High
190-219 High
>=220 Very High LDL, (calculated) 08/16/2023 11:39:28 130 Above high n ormal <=129 (mg/dL) Final LDL Cholesterol Reference Ra nges (mg/dL):
<70 Target level for high risk ASCVD patient
<100 Optimal for general population
100-129 Near optimal for general population
130-159 Borderline high
160-189 High
>=190 Very high Performing Location LABORATORY [facility] [place] - [address] [facility] [address]
--- OUTSIDE RECORDS SUMMARY | 2023-11-29 15:06 | External Medical Summary | Summary of Care ---
Author Name Unknown Organization [facility] Address [address] [place] [address] Phone [phone] Care Team Providers Care Lehr Attendant Name Role Phone Lexus Plascencia DO Primary Care Provider [phone] Reason for Visit * Reason Onset Date Comments Forms Request 08/16/2023 Encounter Details Date Type Department Care Team ([facility] Contact Info) Description 08/16/2023 Telephone Family Practice [facility] [address] [place] [address] Lexus Plascencia DO [address] [place] [address] Forms Request Allergies No known active allergiesdocumented as of this encounter (statuses as of 08/21/2023) Medications Medication Sig Dispensed Refills Start Date End Date Status Multiple Vitamins-Minerals (MULTIVITAMIN ADULT) TABS Take 1 Tab by mouth 2 times a day. 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 History of tobacco use 08/28/2018 Hypertriglyceridemia 09/14/2017 S/P ablation of atrial flutter 09/11/2017 Overview: Abhinav documented as of this encounter (statuses as of 08/21/2023) Resolved Problems Problem Noted Date Diagnosed Date Resolved Date Typical atrial flutter 08/28/201808/28 documented as of this encounter (statuses as of 08/21/2023) Immunizations Name Administration Dates Next Due Anthrax Vaccine 06/12/2011,01/04/2011,11/21/2010 COVID-19 mRNA, LNP-s, No Pre serve, 2-Dose Series ([employer]) 01/16/2021,12/16/2020 HEP A - Hepatitis A (Adult > 18 yrs) 07/18/2010, 11/24/2009 Hepatitis B, 20+ yrs 11/24/2009 IPV - Polio Virus Vaccine (Inact) 11/18/2009 [place] Encephalitis Vaccine 06/12/2011 MMR - Measles/Mumps/Rubella Vaccine [...] encounter Miscellaneous Notes * Telephone Encounter - Gabriela Castro LPN - 08/21/2023 3:58 PM EST Pt came in and signed form, we faxed to number at top of the form and made copy and sent to scanning. Placed original in mail for his records. * Telephone Encounter - Ly Quezada OSA - 08/21/2023 2:56 PM EST Patient returning call. Gave nurse's message. Patient will be in to sign form * Telephone Encounter - Gabriela Castro LPN - 08/20/2023 6:05 PM EST Form is done but pt has to sign form in order for it to be faxed, can not fax without his signature. Form in Dr Plascencia's box. * Telephone Encounter - Jeanmarie Matta OSA - 08/16/2023 12:09 PM EST Pt dropped off a form for Dr. Plascencia to complete and sign. Placed in nurse bin. Please fax to [phone] when complete. documented in this encounter Plan of Treatment Upcoming Encounters Date Type Department Care Team (Late st Contact Info) Description 2023 4:20 PM EST Office Visit Neurology [facility] [address] [place] [address] [place], [place] [address] Edy Sánchez DO [address] [facility] [place] [address] 01/04/2024 3:30 PM EDT Office Visit Cardiology, [facility] [address] [place] [address] Carolina Leong CRNP [address] [facility] [place] [phone] 08/18/2024 11:20 AM EST Office Visit Family Practice [facility] [address] [facility] [place] [address] Lexus Plascencia, [address] [facility] [place] [address] Health Maintenance Due Date Last Done Comments Hepatitis B (2 of 3 - 19+ 3-dose series) 12/22/2009 11/24/2009 Depression Screening 08/15/2020 08/15/2019 COVID-19 Vaccine (3 2022-24 season) 2023 01/16/2021, 12/16/2020 Influenza Vaccine [...] Not on filedocumented as of this encounter Advance Directives Latest Code Status [...] the patient have Health Care Power of Work Ticket Distributor? Yes, not currently available Care Teams Lehr Attendant Relationship Specialty Start Date End Date Lexus Plascencia DO [address] [place] [address] PCP - General Family Medicine 08/27/17 documented as of this encounter
--- OUTSIDE RECORDS SUMMARY | 2023-11-29 15:06 | External Medical Summary ---
Author Name Unknown Address Unknown Organization [id number]:[facility] [place] [facility] [address] [facility] [place] [address] Laboratory Report Ordering Provider Test Date Status MERI TOM 2023 16:40:30 Final Observation Date Value Abnormality Reference (Units ) Status BUN 2023 16:40:30 10 6-20 (mg/dL) Final Creatinine 2023 16:40:30 1.0 0.6-1.2 (mg/dL) Final Glomerular filtration rate/1.73 sq M.predicted [Volume Rate/Area] in Serum, Plasma or Blood by Creatinine-based formula (CKD-EPI) 2023 16:40:30 >90 >=60 (mL/min) Final eGFR is calculated based on the CKD-EPI 2020 equation SODIUM 2023 16:40:30 143 135-146 (m mol/L) Final Potassium 2023 16:40:30 4.7 3.5-5.1 (m mol/L) Final Cl 2023 16:40:30 105 98-107 (mm ol/L) Final CO2 2023 16:40:30 28 22-32 (mmo l/L) Final Anion gap 2023 16:40:30 10 7-15 (mmol /L) Final Glucose 2023 16:40:30 95 70-120 (mg /dL) Final Albumin 2023 16:40:30 4.8 3.8-5.0 (g /dL) Final AST (Aspartate aminotransferase) 2023 16:40:30 34 10-50 (U/L) Final Result may be falsely elevat ed due to hemolysis. Alk Phos 2023 16:40:30 78 35-130 (U/ L) Final Bilirubin, Total 2023 16:40:30 0.4 <=1 .2 (mg/dL) Final Calcium 2023 16:40:30 10.2 8.4-10.2 ( mg/dL) Final Protein 2023 16:40:30 7.1 6.0-8.3 (g /dL) Final ALT (Alanine aminotransferase) 2023 16:40:30 59 Above high normal 10-50 (U/L) Final Performing Location LABORATORY [facility] [place] - [address] [facility] [place] [address]
--- OUTSIDE RECORDS SUMMARY | 2023-11-29 15:06 | External Medical Summary | Summary of Care ---
Author Name Unknown Organization [facility] Address [address] [place] [address] Phone [phone] Care Team Providers Care Fur Sorter Name Role Phone Lexus Muñiz DO Primary Care Provider [phone] Reason for Visit * Reason Comments Outpatient Testing Encounter Details Date Type Department Care Team ([facility] st Contact Info) Description 2023 3:50 PM EST Laboratory Laboratory [facility] [address] [place] [phone] [facility] [address] [place] [address] Arrived Allergies No known active allergiesdocumented as of this encounter (statuses as of 2023) Medications Medication Sig Dispensed Refills Start Date End Date Status Multiple Vitamins-Minerals (MULTIVITAMIN ADULT) TABS Take 1 Tab by mouth 2 times a day. 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 1 History of tobacco use 08/28/2018 Hypertriglyceridemia 09/14/2017 S/P ablation of atrial flutter 09/11/2017 Overview: Abhinav documented as of this encounter (statuses as of 2023) Resolved Problems Problem Noted Date Diagnosed Date Resolved Date Typical atrial flutter 08/28/201808/28 documented as of this encounter (statuses as of 2023) Immunizations Name Administration Dates Next Due Anthrax Vaccine 06/12/2011,01/04/2011,11/21/2010 COVID-19 mRNA, LNP-s, No Pre serve, 2-Dose Series ([employer]) 01/16/2021,12/16/2020 HEP A - Hepatitis A (Adult > 18 yrs) 07/18/2010, 11/24/2009 Hepatitis B, 20+ yrs 11/24/2009 IPV - Polio Virus Vaccine (Inact) 11/18/2009 [place] Encephalitis Vaccine 06/12/2011 MMR - Measles/Mumps/Rubella Vaccine [...] on file documented as of this encounter Plan of Treatment Upcoming Encounters Date Type Department Care Team (Late st Contact Info) Description 04/22/2024 3:40 PM EDT Office Visit Neurology [facility] [address] [facility] [place] [address] Edy Sánchez, DO [address] [facility] [place] [address] 08/18/2024 11:20 AM EST Office Visit Family Practice [facility] [address] [place] [address] Lexus Muñiz, DO [address] [place] [address] Health Maintenance Due Date Last Done Comments Hepatitis B (2 of 3 - 19+ 3-dose series) 12/22/2009 11/24/2009 Depression Screening 08/15/2020 08/15/2019 COVID-19 Vaccine (2022- season) 2023 01/16/2021, 12/16/2020 Influenza Vaccine (FLU [...] the patient have Health Care Power of Turf And Grounds Supervisor? Yes, not currently available Care Teams Fur Sorter Relationship Specialty Start Date End Date Lexus Muñiz DO [address] [place] [address] PCP - General Family Medicine 08/27/17 documented as of this encounter
--- OUTSIDE RECORDS SUMMARY | 2023-11-29 15:06 | External Medical Summary | Summary of Care ---
Author Name Unknown Organization [facility] Address [address] [place] [address] Phone [phone] Care Team Providers Care Correction Officer [place] [facility] Name Role Phone Lexus Muñiz DO Primary Care Provider [phone] Reason for Visit * Reason Onset Date Comments Scheduling 09/28/2022 Encounter Details Date Type Department Care Team ([facility] st Contact Info) Description 09/28/2022 Telephone [facility] [address] [facility] [place] [address] Joellen Salgado PA-C [address] [facility] [place] [address] Scheduling Allergies No known active allergiesdocumented as of this encounter (statuses as of 09/21/2023) Medications Medication Sig Dispensed Refills Start Date End Date Status Multiple Vitamins-Minerals (MULTIVITAMIN ADULT) TABS Take 1 Tab by mouth 2 times a day. 0 08/27/2017 Active [place]-3 Fatty Acids (FISH OIL OMEGA-3) 1000 MG CAPS Take 1 Cap by mouth 2 times a day. 0 08/27/2017 Active CoQ10 50 MG Oral Capsule Take by mouth daily . 0 Active Etodolac ER 500 MG Oral Tablet Extended Release 24 Hour (LODINE XL) Take 2 Tabs by mouth daily. 60 Tab 1 09/09/2020 08/07/2023 Discontinued( Patient preference/di scontinuation ) Simvastatin 10 MG Oral Tablet (Zocor) Take 1 Tablet by mouth every night at bedtime. 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 History of tobacco use 08/28/2018 Hypertriglyceridemia 09/14/2017 S/P ablation of atrial flutter 09/11/2017 Overview: Abhinav documented as of this encounter (statuses as of 09/21/2023) Resolved Problems Problem Noted Date Diagnosed Date Resolved Date Typical atrial flutter 08/28/201808/28 documented as of this encounter (statuses as of 09/21/2023) Immunizations Name Administration Dates Next Due Anthrax Vaccine 06/12/2011,01/04/2011,11/21/2010 COVID-19 mRNA, LNP-s, No Pre serve, 2-Dose Series (Mevvy) 01/16/2021,12/16/2020 HEP A - Hepatitis A (Adult > 18 yrs) 07/18/2010, 11/24/2009 Hepatitis B, 20+ yrs 11/24/2009 IPV - Polio Virus Vaccine (Inact) 11/18/2009 Finnish Encephalitis Vaccine 06/12/2011 MMR - Measles/Mumps/Rubella Vaccine 11/24/2009 Seasonal Influenza, Split, I IV3, With Preserve, Inj 11/18/2009 TDAP (age 10 and older)(Boostrix) 09/05/2021 Vaccinia (Smallpox) 11/01/2010 Varicella Vaccine (Chicken Pox) 11/24/2009 documented as of this encounter Social History Tobacco Use Types Packs/Day Years Used Date Smoking Tobacco: Former Smokeless Tobacco: Current Chew Comments:weekends Alcohol Use Standard Drinks/Week Comments Yes 0 (1 standard drink = 0.6 oz pur e alcohol) 2-3 times weekly PHQ-2 Answer Date Recorded PHQ-2 Score 0 08/15/2019 Hunger Vital Sign Answer Date Recorded Worried About Running Out of Food in the Last Ye ar Never true 08/15/2019 Ran Out of Food in the Last Year Never true 08/15/2019 Sex and Gender Information Value Date Recorded Sex Assigned at Male 08/02/2023 8:39 AM EST Gender Identity Male 08/02/2023 8:39 AM EST Sexual Orientation Straight 08/02/2023 8: 39 AM EST Job Start Date Occupation Industry Not on file Not on file Not on file documented as of this encounter Miscellaneous Notes * Telephone Encounter - Abril Moya OSA - 02/16/2023 1:37 PM EDT Appointment noted and completed in January 2023. * Telephone Encounter - Terry Hensley OSA - 10/03/2022 10:58 AM EST LMOM letting patient know I am resending orders to [facility]. * Telephone Encounter - Abril Moya OSA - 09/28/2022 3:34 PM EST Patient hasn't heard anything from sleep study referral. Please assist on scheduling sleep study. documented in this encounter Plan of Treatment Upcoming Encounters Date Type Department Care Team (Late st Contact Info) Description 2023 4:20 PM EST Office Visit Neurology [facility] [address] [facility] [place] [address] Edy Sánchez, DO [address] [facility] [place] [address] 01/04/2024 3:30 PM EDT Office Visit Cardiology, [facility] [address] [facility] [place] [address] Carolina Leong CRNP [address] [place] [address] [place] [phone] 08/18/2024 11:20 AM EST Office Visit Family Practice [facility] [address] [facility] [place] [address] Lexus Muñiz DO [address] [place] [address] Health Maintenance Due Date Last Done Comments [...] the patient have Health Care Power of Underwear Hemmer? Yes, not currently available Care Teams Correction Officer [place] [facility] Relationship Specialty Start Date End Date Lexus Muñiz DO [address] [place] [address] PCP - General Family Medicine 08/27/17 documented as of this encounter
--- OUTSIDE RECORDS SUMMARY | 2023-11-29 15:06 | External Medical Summary | Summary of Care ---
Author Name Unknown Organization [facility] Address [address] [place] [address] Phone [phone] Care Team Providers Care Technology Methodology Consultant Name Role Phone Lexus Muñiz DO Primary Care Provider [phone] Reason for Visit * Reason Comments Outpatient Testing Encounter Details Date Type Department Care Team (Late st Contact Info) Description 08/16/2023 11:40 AM EST Laboratory Laboratory, [facility] [address] [place] [phone] [facility] [address] [place] [address] Typical atrial flutter (HCC); S/P ablation of atrial flutter; Hypertriglyceridemia; Myotonic muscular dystrophy (HCC); Well adult exam Allergies No known active allergiesdocumented as of this encounter (statuses as of 08/16/2023) Medications Medication Sig Dispensed Refills Start Date End Date Status Multiple Vitamins-Minerals (MULTIVITAMIN ADULT) TABS Take 1 Tab by mouth 2 times a day. 0 08/27/2017 Active [place]-3 Fatty Acids (FISH OIL OMEGA-3) 1000 MG [...] mRNA, LNP-s, No Pre serve, 2-Dose Series ([employer]) 01/16/2021,12/16/2020 HEP A - Hepatitis A (Adult > 18 yrs) 07/18/2010, 11/24/2009 Hepatitis B, 20+ yrs 11/24/2009 IPV - Polio Virus Vaccine (Inact) 11/18/2009 [place] Encephalitis Vaccine 06/12/2011 MMR - Measles/Mumps/Rubella Vaccine [...] 2023 4:20 PM EST Office Visit Neurology [facility] [address] [facility] [place] [address] Edy Sánchez, DO [address] [facility] [place] [address] 01/04/2024 3:30 PM EDT Office Visit Cardiology, [facility] [address] [facility] [place] [address] Carolina Leong CRNP [address] [facility] [place] [phone] 08/18/2024 11:20 AM EST Office Visit Family Practice [facility] [address] [place] [address] Lexus Muñiz, DO [address] [place] [address] Pending Results Name Type Priority Associated Diagnoses Date /Time COMPREHENSIVE METABOLIC PANEL Lab Routine Typical atrial flutter (HCC) S/P ablation of atrial flutter Hypertriglyceridemia Myotonic muscular dystrophy (HCC) 08/16/2023 11:39 AM EST LIPID PANEL WITH DIRECT LDL IF TG IS HIGH Lab Routine Typical atrial flutter (HCC) S/P ablation of atrial flutter Hypertriglyceridemia Myotonic muscular dystrophy (HCC) 08/16/2023 11:39 AM EST HEMOGLOBIN A1C Lab Routine Well adult exam Myotonic muscular dystrophy (HCC) Hypertriglyceridemia 08/16/2023 11:39 AM EST Health Maintenance Due Date Last Done Comments [...] as of this encounter Visit Diagnoses Diagnosis Typical atrial flutter (HCC) Atrial flutter S/P ablation of atrial flutter Other postprocedural status Hypertriglyceridemia Pure hyperglyceridemia Myotonic muscular dystrophy (HCC) Myotonic muscular dystrophy Well adult exam Routine general medical examination at a health care facility documented in this encounter Advance Directives Latest [...] the patient have Health Care Power of Ticker Installer? Yes, not currently available Care Teams Technology Methodology Consultant Relationship Specialty Start Date End Date Lexus Muñiz DO [address] [place] [address] PCP - General Family Medicine 08/27/17 documented as of this encounter
--- OUTSIDE RECORDS SUMMARY | 2023-11-29 15:07 | External Medical Summary ---
Author Name Unknown Address Unknown Organization [id number]:[facility] [place] [address] [facility] [address] Laboratory Report Ordering Provider Test Date Status GURPREET WINSTON 08/16/2023 11:39:28 Final Observation Date Value Abnormality Reference (Units ) Status HbA1C 08/16/2023 11:39:28 5.5 4.0-5.6 (% ) Final The use of HbA1c to monitor glycemic status is based on normal hemoglobin and HbA composition. This test should not be used in patients with abnormal hemoglobin that affects the half life of the red blood cell or the in vivo glycation rates. Glucose, estimated average 08/16/2023 11:39:28 111 <126 (mg/dL) Final Performing Location [facility] [place] [address] [place] [address]
--- OUTSIDE RECORDS SUMMARY | 2023-11-29 15:07 | External Medical Summary | Summary of Care ---
Author Name Unknown Organization [facility] Address [address] [place] [address] Phone [phone] Care Team Providers Care Dye House Worker Name Role Phone Lexus Muñiz DO Primary Care Provider [phone] Reason for Visit * Reason Onset Date Comments Medication Refill 07/06/2023 Encounter Details Date Type Department Care Team ([facility] st Contact Info) Description 07/06/2023 Refill Cardiology, [facility] [address] [facility] [place] [address] Sathish Triana DO [address] [facility] [place] [address] Hypertriglyceridemia* Allergies No known active allergiesdocumented as of this encounter (statuses as of 07/10/2023) Medications Medication Sig Dispensed Refills Start Date End Date Status Multiple Vitamins-Mineral s (MULTIVITAMIN ADULT) TABS Take 1 Tab by mouth 2 times a day. 0 08/27/2017 Active [place]-3 Fatty Acids (FISH OIL OMEGA-3) 1000 MG CAPS Take 1 Cap by mouth 2 times a day. 0 08/27/2017 Active Etodolac ER 500 MG Oral Tablet Extended Release 24 Hour (LODINE XL) Take 2 Tabs by mouth daily. 60 Tab 1 09/09/2020 Active Additional Information Patient not taking.Reported on 09/28/2022 CoQ10 50 MG Oral Capsule Take by mouth daily . 0 Active Mexiletine HCl 150 MG Oral Capsule (Mexitil)Indicat ions:Myotonic muscular dystrophy (HCC),Myotonia TAKE 1 CAPSULE BY MOUTH EVERY DAY IN THE MORNING , AT NOON, AND BEFORE BEDTIME 90 Capsule 1 06/20/2023 Active Simvastatin 20 MG Oral Tablet (Zocor)Indicatio ns:Hypertriglyce ridemia Take 1 Tablet by mouth at bedtime. 90 Tablet 3 07/10/2023 Active Simvastatin 20 MG Oral Tablet (Zocor) Take 1 Tablet by mouth at bedtime. 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 History of tobacco use 08/28/2018 Hypertriglyceridemia 09/14/2017 S/P ablation of atrial flutter 09/11/2017 Overview: Abhinav documented as of this encounter (statuses as of 07/10/2023) Resolved Problems Problem Noted Date Diagnosed Date Resolved Date Typical atrial flutter 08/28/201808/28 documented as of this encounter (statuses as of 07/10/2023) Immunizations Name Administration Dates Next Due Anthrax Vaccine 06/12/2011,01/04/2011,11/21/2010 COVID-19 mRNA, LNP-s, No Pre serve, 2-Dose Series ([employer]) 01/16/2021,12/16/2020 HEP A - Hepatitis A (Adult > 18 yrs) 07/18/2010, 11/24/2009 Hepatitis B, 20+ yrs 11/24/2009 IPV - Polio Virus Vaccine (Inact) 11/18/2009 [place] Encephalitis Vaccine 06/12/2011 MMR - Measles/Mumps/Rubella Vaccine [...] oz pur e alcohol) 2-3 times weekly Sex and Gender Information Value Date Recorded Sex Assigned at Not on file Gender Identity Not on file Sexual Orientation Not on file Job Start Date Occupation Industry Not on file Not on file Not on file documented as of this encounter Miscellaneous Notes * Telephone Encounter - Sathish Triana DO - 07/10/2023 1:33 PM EDT Signed Prescriptions: Disp Refills Simvastatin 20 MG Oral Tablet (Zocor) 90 Tab*3 Sig: Take 1 Tablet by mouth at bedtime. Authorizing Provider: SATHISH TRIANA * Telephone Encounter - Irene Ruvalcaba COT - 07/09/2023 12:00 PM EDTPending Prescriptions: Disp Refills Simvastatin 20 MG Oral Tablet (Zocor) 90 Tab*3 Sig: Take 1 Tablet by mouth at bedtime. * Telephone Encounter - Irene Ruvalcaba COT - 07/09/2023 12:00 PM EDT Did you pend patient's preferred pharmacy and medication before forwarding?yes Pharmacy: [id number] [address] [facility] Pending Prescriptions: Disp Refills Simvastatin 20 MG Oral Tablet (Zocor) 90 Tab*3 Sig: Take 1 Tablet by mouth at bedtime. Last Visit: 12/26/2022 (in office), Visit date not found (telemedicine) Next Visit: 08/07/2023 If no future appointments scheduled, and last appointment is greater than a year ago, please schedule patient for a follow-up appointment Last date the medication was ordered: 12-26-2022 Is this request for a controlled substance?No Urine Drug Screen: Results for orders placed or performed during the hospital encounter of 08/28/17 TOX SCREEN, URINE, W/O CONFIRMATION Result Value AMPHETAMINES NEGATIVE BARBITURATES NEGATIVE BENZODIAZEPINES NEGATIVE CANNABINOIDS NEGATIVE COCAINE METABOLITE NEGATIVE MORPHINE/ CODEINE NEGATIVE METHADONE METABOLITE NEGATIVE OXYCODONE NEGATIVE NOTE: THE ABOVE SCREENING RESULTS ARE PRESUMPTIVE AND CAN ONLY BE USED FOR MEDICAL PURPOSES. CONFIRMATORY TESTING IS AVAILABLE UPON REQUEST. CUTOFF CONCENTRATION Patient Phone Numbers Labs: Lab Results Component Value Date/Time CREAT 1.1 09/17/2020 01:22 PM POTASSIUM 4.6 09/17/2020 01:22 PM TSH 0.88 09/17/2020 01:22 PM LDLCALC 101 09/17/2020 01:22 PM LDLDIRECT 104 08/21/2022 11:58 AM LDLDIRECT NOT APPLICABLE 09/17/2020 01:22 PM ALT 50 12/08/2020 02:11 PM ALT 45 09/17/2020 01:22 PM HGBA1C 5.4 08/21/2022 11:58 AM HGBA1C 5.5 08/15/2019 01:02 PM documented in this encounter Plan of Treatment Upcoming Encounters Date Type Department Care Team (Late st Contact Info) Description 08/07/2023 1:30 PM EST Office Visit Cardiology, [facility] [address] [place] [address] Carolina Leong CRNP [address] [place] [address] [place] [phone] 08/16/2023 10:40 AM EST Office Visit Family Practice [facility] [address] [place] [address] Lexus Muñiz DO [address] [place] [address] 2023 4:20 PM EST Office [facility] [address] [place] [address] Edy Sánchez, DO [address] [place] [address] 01/04/2024 3:30 PM EDT Office Visit Cardiology, [facility] [address] [facility] [place] [address] Carolina Leong CRNP [facility] [phone] Health Maintenance Due Date Last Done Comments Hepatitis B (2 of 3 - 19+ 3-dose series) 12/22/2009 11/24/2009 Depression Screening 08/15/2020 08/15/2019 COVID-19 Vaccine (3 - 2022-24 season) 2023 01/16/2021, 12/16/2020 Influenza Vaccine (FLU shot) (#1) 2023 06/05/2012, 06/19/2011, 06/15/2010, Additional history exists DTaP,Tdap,and Td Vaccines (2 - Td or Tdap) 09/05/2031 09/05/2021 MENINGOCOCCAL (MENACTRA/MENVEO) Aged Out 12/23/2002 No longer eligible based on patient's age [...] as of this encounter Visit Diagnoses Diagnosis Hypertriglyceridemia- Primary Pure hyperglyceridemia documented in this encounter Advance [...] the patient have Health Care Power of High School Hvac R Instructor? Yes, not currently available Care Teams Dye House Worker Relationship Specialty Start Date End Date Lexus Muñiz DO [address] [place] [address] PCP - General Family Medicine 08/27/17 documented as of this encounter
--- OUTSIDE RECORDS SUMMARY | 2023-11-29 15:07 | External Medical Summary | Summary of Care ---
Author Name Unknown Organization [facility] Address [address] [place] [address] Phone [phone] Care Team Providers Care Life Guard Name Role Phone Lexus Muñiz DO Primary Care Provider [phone] Reason for Visit * Reason Comments Follow Up Encounter Details Date Type Department Care Team ([facility] st Contact Info) Description 08/07/2023 1:30 PM EST Office Visit Cardiology, [facility] [address] [facility] [place] [address] Carolina Leong CRNP [address] [place] [address] Typical atrial flutter (HCC)*; S/P ablation of atrial flutter; Hypertriglyceridemia ; Myotonic muscular dystrophy (HCC) Allergies No known active allergiesdocumented as of this encounter (statuses as of 08/08/2023) Medications Medication Sig Dispensed Refills Start Date End Date Status Multiple Vitamins-Minerals (MULTIVITAMIN ADULT) TABS Take 1 Tab by mouth 2 times a day. 0 08/27/2017 Active Kokomo-3 Fatty Acids (FISH OIL OMEGA-3) 1000 MG [...] 3x daily 90 Capsule 5 08/06/2023 Active Etodolac ER 500 MG Oral Tablet Extended Release 24 Hour (LODINE XL) Take 2 Tabs by mouth daily. 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 History of tobacco use 08/28/2018 Hypertriglyceridemia 09/14/2017 S/P ablation of atrial flutter 09/11/2017 Overview: Abhinav documented as of this encounter (statuses as of 08/08/2023) Resolved Problems Problem Noted Date Diagnosed Date Resolved Date Typical atrial flutter 08/28/201808/28 documented as of this encounter (statuses as of 08/08/2023) Immunizations Name Administration Dates Next Due Anthrax Vaccine 06/12/2011,01/04/2011,11/21/2010 COVID-19 mRNA, LNP-s, No Pre serve, 2-Dose Series ([employer]) 01/16/2021,12/16/2020 HEP A - Hepatitis A (Adult > 18 yrs) 07/18/2010, 11/24/2009 Hepatitis B, 20+ yrs 11/24/2009 IPV - Polio Virus Vaccine (Inact) 11/18/2009 Greek Encephalitis Vaccine 06/12/2011 MMR - Measles/Mumps/Rubella Vaccine [...] Sign Reading Time Taken Comments Blood Pressure 142/92 08/07/2023 1:57 PM EST Pulse 76 08/07/2023 1:14 PM EST Temperature - - Respiratory Rate 14 08/07/2023 1:14 PM EST Oxygen Saturation - - Inhaled Oxygen Concentration - - Weight 82.1 kg (181 lb) 08/07/2023 1:14 PM EST Height - - Body Mass Index 24.55 08/21/2022 11:05 AM EST documented in this encounter Patient Instructions * Patient Instructions* Carolina Leong CRNP - 08/07/2023 1:54 PM EST Fasting lipid panel when you get a chance documented in this encounter Progress Notes * Carolina Leong CRNP - 08/07/2023 1:18 PM EST Subjective Rishabh Bentley is a 37 year old male. Chief Complaint Patient presents with Follow Up Pt returns to EP for annual f/u due to for myotonic muscular dystrophy Referring Provider: Dr. Damon Cardiac Problems: P. Atrial flutter s/p empiric flutter ablation 09/2017 myotonic muscular dystrophy HPI: 37 year old male presents for routine EP follow up. Last seen in the clinic 6 months ago. Feeling well from a cardiac standpoint since their last visit with no acute concerns today. He has since been started on mexiletine for management of his myotonic dystrophy. This has significantly helped myotonia. Denies chest pain, SOB, palpitations, dizziness, syncope, edema, orthopnea and PND. No change in activity tolerance. Denies any caffeine intake or significant sodium intake. Reports compliance with medications without any untoward side effects, or difficulty with affordability. PMH: Patient Active Problem List Diagnosis Code S/P ablation of atrial flutter Z98.890, Z86.79 Hypertriglyceridemia E78.1 History of tobacco use Z87.891 Myotonic muscular dystrophy (HCC) G71.11 Current Outpatient Medications Medication Sig Dispense Refill Multiple Vitamins-Minerals (MULTIVITAMIN ADULT) TABS Take 1 Tab by mouth 2 times a day. Kokomo-3 Fatty Acids (FISH OIL OMEGA-3) 1000 MG CAPS Take 1 Cap by mouth 2 times a day. CoQ10 50 MG Oral Capsule Take by mouth daily . Simvastatin 20 MG Oral Tablet (Zocor) Take 1 Tablet by mouth at bedtime. 90 Tablet 3 Mexiletine HCl 150 MG Oral Capsule (Mexitil) 1 capsule 3x daily 90 Capsule 5 Etodolac ER 500 MG Oral Tablet Extended Release 24 Hour (LODINE XL) Take 2 Tabs by mouth daily. (Patient not taking: Reported on 10/25/2021) 60 Tab 1 No current facility-administered medications for this visit. [...] on file Housing Stability: Not on file Review of Systems Constitutional: Positive for activity change and fatigue. Negative for chills, fever and unexpectedweight change. HENT: Negative for postnasal drip, rhinorrhea and sinus pressure. Eyes: Negative for visual disturbance. Respiratory: Negative for shortness of breath. Cardiovascular: Negative for chest pain, palpitations and leg swelling. Gastrointestinal: Negative for blood in stool, constipation, diarrhea, nausea and vomiting. Genitourinary: Negative for dysuria and hematuria. Musculoskeletal: Negative for gait problem. Skin: Negative for rash. Neurological: Positive for weakness. Negative for dizziness, syncope and light-headedness. Objective BP 166/106 | Pulse 76 | Resp 14 | Wt 82.1 kg (181 lb) | BMI 24.55 kg/m | BSA 2.04 m Physical Exam Vitals and nursing note reviewed. Constitutional: General: He is awake. Appearance: Normal appearance. He is well-developed. HENT: Head: Normocephalic and atraumatic. Eyes: General: No scleral icterus. Extraocular Movements: Extraocular movements intact. Neck: Vascular: Normal carotid pulses. No carotid bruit or JVD. Cardiovascular: Rate and Rhythm: Normal rate and regular rhythm. Pulses: Carotid pulses are 2+ on the right side and 2+ on the left side. Radial pulses are 2+ on the right side and 2+ on the left side. Posterior tibial pulses are 2+ on the right side and 2+ on the left side. Heart sounds: S1 normal and S2 normal. No murmur heard. Pulmonary: Effort: Pulmonary effort is normal. Breath sounds: Normal breath sounds. No decreased breath sounds, wheezing, rhonchi or rales. Abdominal: General: Abdomen is flat. Palpations: Abdomen is soft. Musculoskeletal: Cervical back: Neck supple. Right lower leg: No edema. Left lower leg: No edema. Skin: General: Skin is warm and dry. Neurological: General: No focal deficit present. Mental Status: He is alert and oriented to person, place, and time. Psychiatric: Attention and Perception: Attention normal. Mood and Affect: Mood normal. Speech: Speech normal. Behavior: Behavior normal. Behavior is cooperative. Thought Content: Thought content normal. Cognition and Memory: Cognition normal. Judgment: Judgment normal. RESULTS: ECGs: 05/24/23 NSR 67 bpm QTc 460 ms 12/26/22 SR 75bpm Borderline 1st degree AV block 10/25/2021: SR with SA 61bpm Normal intervals 10/15/2017: SR 84bpm Normal intervals 08/28/2017: Atrial flutter 86bpm Nonspecific IVCD 08/28/2017: Atrial flutter 128bpm 08/27/2017: Atrial flutter 120bpm Holter Monitor: 10/11/2021: CONCLUSIONS: 1. Duration - 48 hours. 2. Quality - good. 3. Dominant rhythm - normal sinus rhythm with average heart rate 76 beats per minute. 4. PACs - rare PACs. 5. PVCs - rare PVCs. 6. Symptoms - none reported. Echocardiograms: 10/13/2021: The qualitative LV ejection fraction is 60-64% (normal). The left ventricular diastolic function is normal. The aortic valve has three leaflets. Trace aortic regurgitation. Trace mitral regurgitation. Zio Patch Monitor: 08/27/2017: There was atrial flutter with rapid ventricular response ( rate 140-150 bpm) during the examination. The aortic valve is congenitally bicuspid. The right coronary cusp leaflet and left coronary cusp leaflets are fused. Trace aortic regurgitation is present. Calculated LV ejection Fraction = 40% (biplane method of discs). There is diffuse mild hypokinesis. Low ejection fraction is probably secondary to tachycardia. There is no evidence of pulmonary hypertension. Laboratory Data Review: Latest Reference Range & Units 08/21/22 11:58 Triglycerides <=174 mg/dL 257 (H) Cholesterol <200 mg/dL 188 Non-HDL Cholesterol <=159 mg/dL 148 HDL Cholesterol >39 mg/dL 40 LDL Cholesterol (Direct Measure) <=129 mg/dL 104 Glucose 70 - 120 mg/dL 107 Estimated Average Glucose <126 mg/dL 108 Hemoglobin A1C 4.0 - 5.6 % 5.4 Impression 1. P. Atrial flutter s/p empiric flutter ablation 09/2017 2. Myotonic muscular dystrophy Type I DMPK Gene + 3. Hypertriglyceridemia 4. H/o tobacco use Plan: -HR well controlled -ECG completed in May reveals NSR with stable intervals -recommend repeat metabolic panel for monitoring -also due for updated lipid panel -provided lab orders today which he will take to [facility] to be completed -BP elevated today, improved on recheck but still on the high side. I have asked him to check his blood pressure readings to home to see if they are better to be sure this is not situational. - I have encouraged him to reach out if his home readings are consistently above 140/80 at that time would need to consider medication for further management -continue simvastatin and mexilitine -Educated patient on caution with change in positions to minimize symptomatic orthostatic hypotension -Discussed importance of diet & exercise with the patient. -Discussed with patient subtle changes in how they are feeling or completing daily activities to contact us sooner; don't wait days or weeks. DISPOSITION: Follow up 6 months or if symptoms worsen/fail to improve. All questions were answered to the patients satisfaction. Patient advised to report to ED with any and all emergencies. The patient agrees to the above plan and will call with additional questions or concerns. [facility], [address] [address] This chart was completed in part utilizing [employer] Speech Voice Recognition Software. Grammatical errors, random word insertions, pronoun errors, and incomplete sentences are an occasional consequence of this system due to software limitations, ambient noise, and hardware issues. Any formal questions or concerns about the content, text, or information contained within the body of this dictation should be directly addressed to the provider for clarification. documented in this encounter Nursing Notes * Chiquis Bell LPN - 08/07/2023 1:14 PM EST Examination Room: 17 Name: Rishabh Bentley Date of : 1985 Reason for Visit: Follow up Problems/Concerns: Denies cardiac complaint Interim Hosp(s): denies Chest Pain/SOB: denies MyChart Discussed: ALREADY ACTIVE Patient was instructed to not get up on the exam table until directed and assisted by their provider; patient is to remain seated in the chair/ wheelchair/ exam table for fall prevention and safety reasons. Patient is aware to have assistance to step down off exam table with personnel. documented in this encounter Plan of Treatment Upcoming Encounters Date Type Department Care Team (Late st Contact Info) Description 08/16/2023 10:40 AM EST Office Visit Family Practice [facility] [address] [facility] [place] [address] Lexus Muñiz, DO [address] [facility] [place] [address] 2023 4:20 PM EST Office Visit Neurology [facility] [address] [facility] [place] [address] Edy Sánchez, DO [address] [facility] [place] [address] 01/04/2024 3:30 PM EDT Office Visit Cardiology, [facility] [address] [facility] [place] [address] Carolina Leong CRNP [address] [facility] [place] [address] Scheduled Orders Name Type Priority Associated Diagnoses Orde r Schedule COMPREHENSIVE METABOLIC PANEL Lab Routine Typical atrial flutter (HCC) S/P ablation of atrial flutter Hypertriglyceridemia Myotonic muscular dystrophy (HCC) Expected: 08/07/2023 (Approximate), Expires: 08/07/2024 LIPID PANEL WITH DIRECT LDL IF TG IS HIGH Lab Routine Typical atrial flutter (HCC) S/P ablation of atrial flutter Hypertriglyceridemia Myotonic muscular dystrophy (HCC) Expected: 08/07/2023, Expires: 08/07/2024 Health Maintenance Due Date Last Done Comments Hepatitis B (2 of 3 - 19+ 3-dose series) 12/22/2009 11/24/2009 Depression Screening 08/15/2020 08/15/2019 COVID-19 Vaccine (24 season) 2023 01/16/2021, 12/16/2020 Influenza Vaccine (FLU [...] encounter Visit Diagnoses Diagnosis Typical atrial flutter (HCC)- Primary Atrial flutter S/P ablation of atrial flutter Other postprocedural status Hypertriglyceridemia Pure hyperglyceridemia Myotonic muscular dystrophy (HCC) Myotonic muscular dystrophy documented in this encounter [...] the patient have Health Care Power of Entry Level Account Executive? Yes, not currently available Care Teams Life Guard Relationship Specialty Start Date End Date Lexus Muñiz DO [address] [place] [address] PCP - General Family Medicine 08/27/17 documented as of this encounter"
--- OUTSIDE RECORDS SUMMARY | 2023-11-29 15:07 | External Medical Summary | Summary of Care ---
Author Name Unknown Organization [facility] Address [address] [place] [address] Phone [phone] Care Team Providers Care Counter Pocket Sewer Name Role Phone Lexus Muñiz DO Primary Care Provider [phone] Reason for Visit * Reason Comments eRx-Medication Refill Encounter Details Date Type Department Care Team Description 06/19/2023 Refill Neurology [facility] [address] [place] [address] Edy Sánchez DO [address] [place] [address] Myotonic muscular dystrophy (HCC); Myotonia Allergies No known active allergiesdocumented as of this encounter (statuses as of 06/20/2023) Medications Medication Sig Dispensed Refills Start Date End Date Status Multiple Vitamins-Mineral s (MULTIVITAMIN ADULT) TABS Take 1 Tab by mouth 2 times a day. 0 08/27/2017 Active Sodus-3 Fatty Acids (FISH OIL OMEGA-3) 1000 MG [...] 0 Active Simvastatin 20 MG Oral Tablet (Zocor) Take 1 Tablet by mouth at bedtime. 90 Tablet 3 12/26/2022 Active Mexiletine HCl 150 MG Oral Capsule (Mexitil)Indicat ions:Myotonic muscular dystrophy (HCC),Myotonia TAKE 1 CAPSULE BY MOUTH EVERY DAY IN THE MORNING , AT NOON, AND BEFORE BEDTIME 90 Capsule 1 06/20/2023 Active Mexiletine HCl 150 MG Oral Capsule (Mexitil)Indicat ions:Myotonic muscular dystrophy (HCC),Myotonia Take 1 Capsule by mouth in the morning and 1 Capsule at noon and 1 Capsule before bedtime. 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 1 History of tobacco use 08/28/2018 Hypertriglyceridemia 09/14/2017 S/P ablation of atrial flutter 8 Overview: Abhinav documented as of this encounter (statuses as of 06/20/2023) Resolved Problems Problem Noted Date Resolved Date Typical atrial flutter 08/28/2018 8 documented as of this encounter (statuses as of 06/20/2023) Immunizations Name Administration Dates Next Due Anthrax Vaccine 06/12/2011,01/04/2011,11/21/2010 COVID-19 mRNA, LNP-s, No Pre serve, 2-Dose Series (GoTable) 01/16/2021,12/16/2020 HEP A - Hepatitis A (Adult > 18 yrs) 07/18/2010, 11/24/2009 Hepatitis B, 20+ yrs 11/24/2009 IPV - Polio Virus Vaccine (Inact) 11/18/2009 Greenlandic Encephalitis Vaccine 06/12/2011 MMR - Measles/Mumps/Rubella Vaccine [...] oz pur e alcohol) 2-3 times weekly Food Insecurity Answer Date Recorded Within the past 12 months, y ou worried that your food would run out before you got money to buy more. Never true 08/15/2019 Within the past 12 months, t he food you bought just didn't last and you didn't have money to get more. Never true 08/15/2019 Sex Assigned at Date Recorded Not on file Job Start Date Occupation Industry Not on file Not on file Not on file documented as of this encounter Miscellaneous Notes * Telephone Encounter - Edy Sánchez DO - 06/20/2023 2:40 PM EDT Signed Prescriptions: Disp Refills Mexiletine HCl 150 MG Oral Capsule (Mexiti*90 Cap*1 Sig: TAKE 1 CAPSULE BY MOUTH EVERY DAY IN THE MORNING , AT NOON, AND BEFORE BEDTIME Authorizing Provider: EDY SÁNCHEZ * Telephone Encounter - Jerri Wolff LPN - 06/20/2023 2:23 PM EDTPending Prescriptions: Disp Refills Mexiletine HCl 150 MG Oral Capsule [Pharma*90 Cap*1 Sig: TAKE 1 CAPSULE BY MOUTH EVERY DAY IN THE MORNING , AT NOON, AND BEFORE BEDTIME * Telephone Encounter - Dari Mayer mobility architect manager - 06/20/2023 1:39 PM EDT Pending Prescriptions: Disp Refills Mexiletine HCl 150 MG Oral Capsule [Pharma*90 Cap*1 Sig: TAKE 1 CAPSULE BY MOUTH EVERY DAY IN THE MORNING , AT NOON, AND BEFORE BEDTIME * Telephone Encounter - CESAR Andujar - 06/20/2023 1:39 PM EDT Patient is up to date for office visits. Pending Prescriptions: Disp Refills Mexiletine HCl 150 MG Oral Capsule (Mexit*90 Cap*1 Sig: TAKE 1 CAPSULE BY MOUTH EVERY DAY IN THE MORNING , AT NOON, AND BEFORE BEDTIME Last Visit: 04/17/2023 (in office), Visit date not found (telemedicine) Next Visit: 2023 If no future appointments scheduled, and last appointment is greater than a year ago, please schedule patient for a follow-up appointment Last date the medication was ordered: 04/17/2023 Pharmacy: [id number] Is this request for a controlled substance?No it is not controlled. Urine Drug Screen: Results for orders placed [...] Plan of Treatment Upcoming Encounters Date Type Specialty Care Team Description 08/07/2023 Office Visit Cardiology Carolina Leong CRNP [address] [place] [address] 2023 Office Visit Neurology Edy Sánchez, [address] [facility] [place] [address] 01/04/2024 Office Visit Cardiology Carolina Leong CRNP [address] [place] [address] Health Maintenance Due Date Last Done [...] the patient have Health Care Power of Copy Director? Yes, not currently available Care Teams Counter Pocket Sewer Relationship Specialty Start Date End Date Lexus Muñiz, [address] [place] [address] PCP - General Family Medicine 08/27/17 documented as of this encounter
--- OUTSIDE RECORDS SUMMARY | 2023-11-29 15:07 | External Medical Summary | Summary of Care ---
Author Name Unknown Organization [facility] Address [address] [place] [address] Phone [phone] Care Team Providers Care Usability Specialist Name Role Phone Lexus Muñiz DO Primary Care Provider [phone] Reason for Visit * Reason Onset Date Comments Medication Refill 08/03/2023 Encounter Details Date Type Department Care Team ([facility] Contact Info) Description 08/03/2023 Refill [facility] [address] [place] [address] Edy Sánchez DO [address] [place] [address] Myotonic muscular dystrophy (HCC); Myotonia Allergies No known active allergiesdocumented as of this encounter (statuses as of 08/06/2023) Medications Medication Sig Dispensed Refills Start Date End Date Status Multiple Vitamins-Mineral s (MULTIVITAMIN ADULT) TABS Take 1 Tab by mouth 2 times a day. 0 08/27/2017 Active [place]-3 Fatty Acids (FISH OIL OMEGA-3) 1000 MG [...] 0 Active Simvastatin 20 MG Oral Tablet (Zocor)Indicatio ns:Hypertriglyce ridemia Take 1 Tablet by mouth at bedtime. 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 1 History of tobacco use 08/28/2018 Hypertriglyceridemia 09/14/2017 S/P ablation of atrial flutter 09/11/2017 Overview: Abhinav documented as of this encounter (statuses as of 08/06/2023) Resolved Problems Problem Noted Date Diagnosed Date Resolved Date Typical atrial flutter 08/28/201808/28 documented as of this encounter (statuses as of 08/06/2023) Immunizations Name Administration Dates Next Due Anthrax Vaccine 06/12/2011,01/04/2011,11/21/2010 COVID-19 mRNA, LNP-s, No Pre serve, 2-Dose Series ([employer]) 01/16/2021,12/16/2020 HEP A - Hepatitis A (Adult > 18 yrs) 07/18/2010, 11/24/2009 Hepatitis B, 20+ yrs 11/24/2009 IPV - Polio Virus Vaccine (Inact) 11/18/2009 Gambian Encephalitis Vaccine 06/12/2011 MMR - Measles/Mumps/Rubella Vaccine [...] Telephone Encounter - Edy Sánchez DO - 08/06/2023 8:45 AM EST Signed Prescriptions: Disp Refills Mexiletine HCl 150 MG Oral Capsule (Mexiti*90 Cap*5 Si capsule 3x daily Authorizing Provider: EDY SÁNCHEZ * Telephone Encounter - Jerri Wolff LPN - 08/06/2023 7:55 AM ESTPending Prescriptions: Disp Refills Mexiletine HCl 150 MG Oral Capsule (Mexiti*90 Cap*1 documented in this encounter Plan of Treatment Upcoming Encounters Date Type Department Care Team (Late st Contact Info) Description 08/07/2023 1:30 PM EST Office Visit Cardiology, [facility] [address] [facility] [place] [address] Carolina Leong CRNP [address] [place] [address] 08/16/2023 10:40 AM EST Office Visit Family Practice [facility] [address] [facility] [place] [address] Lexus Muñiz, DO [address] [facility] [place] [address] 2023 4:20 PM EST Office Visit Neurology [facility] [address] [place] [address] Edy Sánchez, DO [address] [place] [address] 01/04/2024 3:30 PM EDT Office Visit Cardiology, [facility] [address] [facility] [place] [address] Carolina Leong CRNP [address] [place] [phone] Health Maintenance Due Date Last Done Comments [...] the patient have Health Care Power of Pony Trimmer? Yes, not currently available Care Teams Usability Specialist Relationship Specialty Start Date End Date Lexus Muñiz DO [address] [place] [address] PCP - General Family Medicine 08/27/17 documented as of this encounter
[2023-11-29] MEDS ORDERED: SIMVASTATIN 20 MG TAB PO SCH (21:00)
== END 2023-11-29 14:57 | disposition home or self-care (01) | DRG 310 ==
LOC: ED 23:23 → EDINP 11-29 03:07